=== PATIENT | female | born 2000 | race Caucasian/White ===

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

== ENCOUNTER 2019-01-01 19:23 | Emergency (ER) | payer OTHER, BC ==
--- NOTE | 2019-01-01 21:45 | XRAY Report ---
Reason: fall, R ankle pain Procedure Date: 01/01/2019 Accession Number: [id number] / [id number] Procedure: XR - Ankle 3 View RT CPT Code: FULL RESULT: EXAM: RIGHT ANKLE RADIOGRAPHY EXAM DATE: 01/01/2019 09:03 PM. CLINICAL HISTORY: Fall, R ankle pain. COMPARISON: None. TECHNIQUE: 3 views. FINDINGS: Bones: Normal. No fractures or bone lesions. Joints: Normal. No effusion. No subluxations. The ankle mortise is normally aligned. Soft Tissues: There is anterior and lateral ankle soft tissue swelling. IMPRESSION: Soft tissue swelling without fracture or subluxation. RADIA
--- NOTE | 2019-01-01 22:08 | ED Physician Documentation ---
PD HPI LOWER EXT INJURY - Stated complaint Stated Complaint: RT ANKLE INJ - Chief complaint Chief Complaint: Trauma Ext - History obtained from History obtained from: Patient - History of Present Illness PD HPI LOW EXT INJURY LOCATION: Right, Ankle Type of injury: Twist Where injury occurred: Home Timing - onset: How many hours ago (2) Timing - duration: Hours (2) Timing - details: Abrupt onset Pain level max: 7 Pain level now: 6 Improved by: Rest, Ice, Immobilization Worsened by: Moving, Palpating Associated symptoms: Swelling. No: Weakness, Numbness, Tingling Recently seen: Not recently seen - Additional information Additional information: tripped and fell down stairs at work tonight. Review of Systems Constitutional: denies: Fever, Chills Skin: denies: Rash Musculoskeletal: denies: Neck pain, Back pain Neurologic: denies: Headache PD PAST MEDICAL HISTORY - Past Medical History Past Medical History: Yes Endocrine/Autoimmune: HyPERthyroidism - Past Surgical History Past Surgical History: No - Present Medications Home Medications: Ambulatory Orders Medication Instructions Recorded Confirmed Levothyroxine [Synthroid] 1 tab PO DAILY 01/01/19 01/01/19 - Allergies Allergies/Adverse Reactions: Allergies Allergy/AdvReac Type Severity Reaction Status Date / Time No Known Drug Allergies Allergy Verified 01/01/19 19:36 - Social History Does the pt smoke?: No Smoking Status: Never smoker Does the pt drink ETOH?: No Does the pt have substance abuse?: No - Immunizations Immunizations are current?: No Immunizations: TDAP >10years/unknown PD ED PE NORMAL - Vitals Vital signs reviewed: Yes - General General: Alert and oriented X 3, No acute distress - HEENT HEENT: Moist mucous membranes - Derm Derm: Warm and dry - Extremities Extremities: Other (R ankle - TTP and swelling to the lateral malleolus. NVI. normal R foot and R knee exam. ) - Neuro Neuro: Alert and oriented X 3 - Psych Psych: Normal mood, Normal affect Results - Vitals Vitals: Vital Signs - 24 hr 01/01/19 19:29 Temperature 36.8 C Heart Rate 110 H Respiratory 20 Rate Blood Pressure 143/77 H O2 Saturation 98 Oxygen O2 Source Room air - Rads (name of study) R ankle Radiology: Prelim report reviewed, EMP read contemporaneously, See rad report (soft tissue swelling without acute fracture) PD MEDICAL DECISION MAKING - ED course Complexity details: reviewed results, re-evaluated patient, considered differential, d/w patient, d/w family ED course: 18-year-old female with a right ankle sprain. No acute findings on x-ray. Counseled regarding potential missed fractures. Placed in a gel splint and given crutches. Will make weightbearing as tolerated. Patient counseled regarding signs and symptoms for which I believe and urgent re-evaluation would be necessary. Patient with good understanding of and agreement to plan and is comfortable going home at this time This document was made in part using voice recognition software. While efforts are made to proofread this document, sound alike and grammatical errors may occur. L&I paperwork filled out Departure - Departure Disposition: 01 Home, Self Care Clinical Impression: Right ankle sprain Qualifiers: Encounter type: initial encounter Involved ligament of ankle: unspecified ligament Qualified Code(s): S93.401A - Sprain of unspecified ligament of right ankle, initial encounter Condition: Good Instructions: ED Sprain Ankle W X Ray Follow-Up: your,doctor in 1 week for re-evaluation [Other] Comments: Your x-ray does not show any acute abnormalities tonight. Return if you worsen. Follow-up with your doctor for further care within 1 week. You will need to be released back to work. You may bear weight as tolerated. You can use Motrin or Tylenol as needed for pain.
[2019-01-01 22:24] VITALS: BP 146/97
== END 2019-01-01 22:25 | disposition home or self-care (01) ==
LOC: ED 19:23
DX: S93.401A Sprain of unspecified ligament of right ankle, initial encounter (principal); X50.1XXA Overexertion from prolonged static or awkward postures, initial encounter; W10.9XXA Fall (on) (from) unspecified stairs and steps, initial encounter; Y93.01 Activity, walking, marching and hiking; Y99.0 Civilian activity done for income or pay
CPT/HCPCS: 99282; 99283

== ENCOUNTER 2019-07-16 15:48 | Emergency (ER) | payer BC, OTHER ==
[2019-07-16 15:53] VITALS: BP 131/93
--- NOTE | 2019-07-16 16:26 | ED Physician Documentation ---
PD HPI LOWER EXT INJURY - Stated complaint Stated Complaint: RIGHT FOOT INJ - Chief complaint Chief Complaint: Laceration - History obtained from History obtained from: Patient, Family (mom) - History of Present Illness PD HPI LOW EXT INJURY LOCATION: Right, Foot Type of injury: Laceration Where injury occurred: Home Timing - onset: Last night - Additional information Additional information: Patient was putting away dishes last night as she bumped the plate dropped on her foot and broke Review of Systems Respiratory: denies: Dyspnea, Cough Skin: reports: Laceration (s) Musculoskeletal: denies: Extremity pain, Joint pain, Extremity swelling PD PAST MEDICAL HISTORY - Past Medical History Endocrine/Autoimmune: HyPERthyroidism - Past Surgical History Past Surgical History: No - Present Medications Home Medications: Ambulatory Orders Medication Instructions Recorded Confirmed Levothyroxine [Synthroid] 1 tab PO DAILY 01/01/19 01/01/19 Metformin HCl 500 mg PO BID 07/16/19 07/16/19 - Allergies Allergies/Adverse Reactions: Allergies Allergy/AdvReac Type Severity Reaction Status Date / Time No Known Drug Allergies Allergy Verified 01/01/19 19:36 - Social History Does the pt smoke?: No Smoking Status: Never smoker Does the pt drink ETOH?: No Does the pt have substance abuse?: No - Immunizations Immunizations are current?: No Immunizations: TDAP current <10years PD ED PE NORMAL - Vitals Vital signs reviewed: Yes - General General: Alert and oriented X 3, No acute distress - Extremities Extremities: Other (1 cm laceration, superficial to dorsal foot) Results - Vitals Vitals: Vital Signs - 24 hr 07/16/19 15:50 Temperature 36.1 C L Heart Rate 99 Respiratory 18 Rate Blood Pressure 131/93 H O2 Saturation 99 Oxygen O2 Source Room air Procedures - Laceration (location) right foot Length in cm: 1 Wound type: Linear, Superficial Neurovascular status: Sensory intact, Motor intact, Vascular intact Tendon involvement: Tendon intact Wound Preparation: Irrigated copiously NS Skin layer closure: Steri strips Other: Dressing applied, Tetanus UTD Complexity: Simple PD MEDICAL DECISION MAKING - ED course ED course: Wound was cleaned with sterile normal saline and Steri-Stripped using tenture benzoin patient was given instructions on how to care for the Steri-Strips at home and reapply as needed Departure - Departure Disposition: 01 Home, Self Care Clinical Impression: Laceration Condition: Good Record reviewed to determine appropriate education?: Yes Instructions: ED Laceration Small Superf No Sutr Comments: Come back for any signs of infection which would include: Redness, swelling, drainage, increased pain, or fevers. You can wash it soap and water. Discharge Date/Time: 07/16/19 16:30
== END 2019-07-16 16:30 | disposition home or self-care (01) ==
LOC: ED 15:48
DX: S91.311A Laceration without foreign body, right foot, initial encounter (principal); W26.8XXA Contact with other sharp object(s), not elsewhere classified, initial encounter; Y93.E9 Activity, other interior property and clothing maintenance; Y92.009 Unspecified place in unspecified non-institutional (private) residence as the place of occurrence of the external cause
CPT/HCPCS: 12001; 99282; 99283

== ENCOUNTER 2019-12-18 23:04 | Emergency (ER) | payer BC, OTHER ==
--- NOTE | 2019-12-18 23:38 | ED Physician Documentation ---
History of Present Illness - Stated complaint Stated Complaint: R HAND SWELLING - Chief complaint Chief Complaint: Wound - History obtained from History obtained from: Patient - History of Present Illness Timing: How many weeks ago (1) Improved by: nothing Worsened by: no exacerbating factors - Additonal information Additional information: c/o rash on dorsum of right hand. Denies trauma/injury. She has had three round, red lesions on dorsum of right hand for 6-7 days but developed a smaller, new one this evening that is mildly painful. She has not had these symptoms before, has not sought medical attention for this until tonight. Review of Systems Constitutional: denies: Fever Skin: reports: Rash PD PAST MEDICAL HISTORY - Past Medical History Past Medical History: Yes Endocrine/Autoimmune: HyPERthyroidism - Past Surgical History Past Surgical History: No - Present Medications Home Medications: Ambulatory Orders Medication Instructions Recorded Confirmed Levothyroxine [Synthroid] 1 tab PO DAILY 01/01/19 01/01/19 Metformin HCl 500 mg PO BID 07/16/19 07/16/19 Doxycycline Hyclate 100 mg PO BID #19 capsule 12/19/19 - Allergies Allergies/Adverse Reactions: Allergies Allergy/AdvReac Type Severity Reaction Status Date / Time No Known Drug Allergies Allergy Verified 01/01/19 19:36 - Living Situation Living Arrangement: reports: At home - Social History Does the pt smoke?: No Smoking Status: Never smoker Does the pt drink ETOH?: No Does the pt have substance abuse?: No - Immunizations Immunizations are current?: No Immunizations: TDAP current <10years PD ED PE NORMAL - Vitals Vital signs reviewed: Yes - General General: Alert and oriented X 3, No acute distress, Well developed/nourished - Extremities Extremities: No tenderness to palpate, No edema PD ED PE EXPANDED - Extremities LULÚ UE/Hands Visual: 1 - rash 2 - rash 3 - rash (similar to 1, 2: erythematous macule, raised, with sharp margins. nontender, blanches, no fluctuance or discharge) 4 - rash (small, faint erythematous macule; flat, poorly marginated) Results - Vitals Vitals: Vital Signs - 24 hr 12/18/19 12/19/19 23:08 00:14 Temperature 36.7 C 36.4 C L Heart Rate 103 H 78 Respiratory 18 18 Rate Blood Pressure 146/92 H 119/69 O2 Saturation 98 99 Oxygen O2 Source Room air PD MEDICAL DECISION MAKING - ED course Complexity details: considered differential, d/w patient ED course: lesions are limited to dorsum of right hand, unclear etiology, possibly infected insect bites and will treat with doxycycline to see if this clears the lesions. Departure - Departure Disposition: 01 Home, Self Care Clinical Impression: Infected bite wound of hand Condition: Good Instructions: ED Infec Skin Cellulitis, ED Sting Bite Insect Infec Prescriptions: Doxycycline Hyclate 100 mg PO BID #19 capsule Discharge Date/Time: 12/19/19 00:22
[2019-12-19] MEDS ORDERED: DOXYCYCLINE 100 MG TABLET PO STA (00:02)
[2019-12-19 00:15] VITALS: BP 119/69
== END 2019-12-19 00:22 | disposition home or self-care (01) ==
LOC: ED 23:04
DX: S61.451A Open bite of right hand, initial encounter (principal); L08.9 Local infection of the skin and subcutaneous tissue, unspecified; X58.XXXA Exposure to other specified factors, initial encounter
CPT/HCPCS: 99282; 99283; A9270

== ENCOUNTER 2022-11-15 08:00 | Outpatient (CLI) | payer BC ==
[2022-11-15 16:01] LABS: BILIRUBIN,URINE NEGATIVE (NEGATIVE); GLUCOSE, URINE (UA) NEGATIVE (NEGATIVE); KETONES,URINE (UA) NEGATIVE (NEGATIVE); LEUKOCYTE ESTERASE, URINE NEGATIVE (NEGATIVE); NITRITE,URINE POSITIVE (NEGATIVE); OCCULT BLOOD,URINE NEGATIVE (NEGATIVE); PH,URINE 5.5 PH (5.0-7.5); PROTEIN,URINE NEGATIVE (NEGATIVE); UROBILINOGEN,URINE 0.2 (NORMAL) E.U./dL (NORMAL)
[2022-11-15 16:08] LABS: CLARITY,URINE CLOUDY (CLEAR)
[2022-11-15 16:51] LABS: BACTERIA,URINE None Seen /HPF (None Seen); RBC,URINE 0-5 /HPF (0-5); SQUAMOUS EPITHELIAL CELL,UR NONE SEEN (<= Few); WBC,URINE 0-3 /HPF (0-5)
[2022-11-15 16:52] LABS: AMORPHOUS SEDIMENT,UR Marked /LPF
[2022-11-15 21:12] LABS: CHLAMYDIA TRACHOMATIS DNA NEGATIVE (NEGATIVE); NEISSERIA GONORRHOEAE DNA NEGATIVE (NEGATIVE); TRICHOMONAS VAGINALIS DNA NEGATIVE (NEGATIVE)
== END 2022-11-15 23:59 | disposition home or self-care (01) ==
LOC: LAB.WC 08:00
PROVIDERS: ATTEND Nurse Practitioner
DX: O09.891 Supervision of other high risk pregnancies, first trimester (principal)
CPT/HCPCS: 81001; 87086; 87491; 87591; 87661

== ENCOUNTER 2022-11-15 12:10 | Outpatient (CLI) | payer BC, OTHER ==
[2022-11-15 12:34] LABS: BASOPHILS # (AUTO) 0.1 10^3/uL (0.0-0.1); BASOPHILS % (AUTO) 0.7 %; EOSINOPHILS # (AUTO) 0.4 10^3/uL (0.0-0.7); EOSINOPHILS % (AUTO) 3.9 %; HCT - HEMATOCRIT 36.4 % (37.0-47.0); HGB - HEMOGLOBIN 11.8 g/dL (12.0-16.0); LYMPHOCYTES # (AUTO) 2.7 10^3/uL (1.5-3.5); LYMPHOCYTES % (AUTO) 25.2 %; MEAN CORPUSCULAR HEMOGLOBIN 27.4 pg (27.0-31.0); MEAN CORPUSCULAR HGB CONC 32.4 g/dL (32.0-36.0); MEAN CORPUSCULAR VOLUME 84.7 fL (81.0-99.0); MEAN PLATELET VOLUME 9.5 fL (7.9-10.8); MONOCYTES # (AUTO) 0.6 10^3/uL (0.0-1.0); MONOCYTES % (AUTO) 5.2 %; NEUTROPHILS % (AUTO) 64.6 %; PLT - PLATELET COUNT 338 10^3/uL (130-450); RED CELL DISTRIBUTION WIDTH 14.5 % (12.0-15.0); WHITE BLOOD COUNT 10.9 x10^3/uL (4.8-10.8)
[2022-11-16 03:09] LABS: HCV AB Non Reactive (Non Reactive); HIV SCREEN 4TH GENERATION Non Reactive (Non Reactive)
[2022-11-16 05:13] LABS: HBsAG SCREEN Negative (Negative)
[2022-11-16 07:09] LABS: RPR Non Reactive (Non Reactive)
[2022-11-16 12:09] LABS: VARICELLA-ZOSTER AB IGG 1017 index (Immune >165)
== END 2022-11-15 12:11 | disposition home or self-care (01) ==
LOC: LAB 12:10
PROVIDERS: ATTEND Nurse Practitioner
DX: O09.891 Supervision of other high risk pregnancies, first trimester (principal)
CPT/HCPCS: 36415; 81001; 84702; 85025; 86592; 86762; 86787; 86803; 86850; 86900; 86901; 87086; 87340; 87389; 87491; 87591; 87661

== ENCOUNTER 2022-12-29 08:00 | Outpatient (CLI) | payer BC ==
[2022-12-29 15:58] LABS: BILIRUBIN,URINE NEGATIVE (NEGATIVE); GLUCOSE, URINE (UA) NEGATIVE (NEGATIVE); KETONES,URINE (UA) NEGATIVE (NEGATIVE); LEUKOCYTE ESTERASE, URINE NEGATIVE (NEGATIVE); NITRITE,URINE NEGATIVE (NEGATIVE); OCCULT BLOOD,URINE NEGATIVE (NEGATIVE); PROTEIN,URINE NEGATIVE (NEGATIVE); UROBILINOGEN,URINE 0.2 (NORMAL) E.U./dL (NORMAL)
[2022-12-29 16:01] LABS: CLARITY,URINE CLEAR (CLEAR)
[2022-12-29 16:10] LABS: BACTERIA,URINE None Seen /HPF (None Seen); RBC,URINE 0-5 /HPF (0-5); SQUAMOUS EPITHELIAL CELL,UR RARE Squamous (<= Few); WBC,URINE 0-3 /HPF (0-5)
== END 2022-12-29 23:59 | disposition home or self-care (01) ==
LOC: LAB.WC 08:00
PROVIDERS: ATTEND Obstetrics & Gynecology
DX: O09.891 Supervision of other high risk pregnancies, first trimester (principal); Z36.89 Encounter for other specified antenatal screening
CPT/HCPCS: 81001; 87086

== ENCOUNTER 2023-01-11 15:32 | Outpatient (CLI) | payer BC | END 2023-01-11 15:33 | disposition home or self-care (01) | LOC: LAB 15:32 | PROVIDERS: ATTEND Obstetrics & Gynecology | DX: Z36.89 Encounter for other specified antenatal screening (principal) ==

== ENCOUNTER 2023-02-24 16:17 | Outpatient (CLI) | payer BC ==
[2023-02-24 16:31] LABS: BASOPHILS % (AUTO) 0.4 %; EOSINOPHILS # (AUTO) 0.1 10^3/uL (0.0-0.7); EOSINOPHILS % (AUTO) 1.3 %; HCT - HEMATOCRIT 36.8 % (37.0-47.0); HGB - HEMOGLOBIN 11.9 g/dL (12.0-16.0); LYMPHOCYTES # (AUTO) 2.9 10^3/uL (1.5-3.5); LYMPHOCYTES % (AUTO) 27.7 %; MEAN CORPUSCULAR HEMOGLOBIN 27.6 pg (27.0-31.0); MEAN CORPUSCULAR HGB CONC 32.3 g/dL (32.0-36.0); MEAN CORPUSCULAR VOLUME 85.4 fL (81.0-99.0); MEAN PLATELET VOLUME 10.3 fL (7.9-10.8); MONOCYTES # (AUTO) 0.7 10^3/uL (0.0-1.0); MONOCYTES % (AUTO) 6.4 %; NEUTROPHILS # (AUTO) 6.8 10^3/uL (1.5-6.6); PLT - PLATELET COUNT 330 10^3/uL (130-450); RED BLOOD COUNT 4.31 10^6/uL (4.20-5.40); RED CELL DISTRIBUTION WIDTH 13.8 % (12.0-15.0); WHITE BLOOD COUNT 10.6 x10^3/uL (4.8-10.8)
[2023-02-24 17:18] LABS: THYROID STIMULATING HORMONE 3.42 uIU/mL (0.34-5.60)
[2023-02-26 19:07] LABS: AFP MOM 1.14 (.); AFP VALUE 25.1 ng/mL (.); GEST. AGE ON COLLECTION DATE 15.4 weeks (.); GESTAT. AGE METHOD Ultrasound (.); INSULIN DEP DIABETES No (.); MATERNAL AGE AT EDD 23.7 yr (.); MULTIPLE GESTATION No (.); OPEN SPINA BIFIDA RISK 1 IN 7850 (.); RACE Caucasian (.); RESULTS Report (.); TEST RESULTS *Screen Negative* (.); WEIGHT 273 lbs (.)
== END 2023-02-24 16:18 | disposition home or self-care (01) ==
LOC: LAB 16:17
PROVIDERS: ATTEND Obstetrics & Gynecology
DX: O09.92 Supervision of high risk pregnancy, unspecified, second trimester (principal); O99.891 Other specified diseases and conditions complicating pregnancy; R42 Dizziness and giddiness
CPT/HCPCS: 36415; 82105; 82728; 84443; 85025

== ENCOUNTER 2023-03-01 11:26 | Outpatient (CLI) | payer BC | END 2023-03-01 11:27 | disposition home or self-care (01) | LOC: LAB 11:26 | PROVIDERS: ATTEND Nurse Practitioner | DX: O99.213 Obesity complicating pregnancy, third trimester (principal) | CPT/HCPCS: 36415; 82950 ==

== ENCOUNTER 2023-03-07 18:48 | Outpatient (CLI) | payer BC ==
--- NOTE | 2023-03-08 15:56 | Ultrasound Report ---
PROCEDURE: OB Detailed Eval INDICATIONS: SUPERVISION OF OUTSIDE/PRIOR DATING DATA: Last menstrual period (LMP): Unknown. LMP-based estimated date of delivery (LAKEISHA): Unknown. First dating scan (date and location): 11/25/2022. Estimated date of delivery (LAKEISHA) from first dating scan: 07/17/2023. The below data below was generated using the ultrasound LAKEISHA of 07/17/2023 TECHNIQUE: Real-time scanning was performed of the fetus, with image documentation and biometric measurements. COMPARISON: OB ultrasound 03/06/2023 FINDINGS: General: A single living intrauterine gestation is present. Presentation: Variable Placenta: Placental position is posterior, without previa. Amniotic fluid index: 13.7 cm, within normal limits for gestational age. heart rate: 152 beats per minute. Maternal cervical canal: 4.5 cm long; normal length is 2.5 cm or more. biometrics: Biparietal diameter: 4.7 cm 20 weeks 1 day, 15th percentile Head circumference: 18.3 cm 20 weeks 5 days, 22nd percentile Abdominal circumference: 16.7 cm 20 weeks 5 days, 62nd percentile Femur length: 3.3 cm 20 weeks 2 days 15th percentile Estimated gestational age from initial scan: 21 weeks 1 day Composite gestational age from present scan: 20 weeks 4 days Estimated weight and percentile: 390 g, 37th percentile Measurement variability in biometric dating: +/- 10 days from 12-20 weeks gestation, +/- 2 weeks from 20-30 weeks gestation, +/- 3 weeks at 30 weeks gestation or later. Anatomic survey: Neuro: Ventricles are normal at less than 10 mm. Cisterna magna is normal at 3-11 mm. Cerebellum i s normal in size and morphology. Nuchal skin fold: Not well seen. However, it is at the upper limits of normal for gestational age samantha surement. Face: Nose and lips, facial profile are normal. Spine: Not well seen. Heart: 4-chambered heart is present, with normal ventricular outflow tracts. Diaphragm: Diaphragm is intact. Stomach: Left-sided stomach is present. Kidneys: No hydronephrosis. Normal is less than 5 mm in 2nd trimester, less than 7 mm in 3rd trimester. Cord: 3 vessel cord has orthotopic insertion. Bladder: Normal in size. Extremities: Upper extremities are not well visualized. IMPRESSION: Single live intrauterine with ultrasound gestational age today of 20 weeks 4 days. Spine and upper extremities are not well visualized. Reviewed by: Soo Mcdonnell MD on 03/08/2023 3:55 PM PDT Approved by: Soo Mcdonnell MD on 03/08/2023 3:55 PM PDT Station ID: [id number]
== END 2023-03-07 18:49 | disposition home or self-care (01) ==
LOC: DI 18:48
PROVIDERS: ATTEND Obstetrics & Gynecology
DX: O09.92 Supervision of high risk pregnancy, unspecified, second trimester (principal); Z3A.20 20 weeks gestation of pregnancy

== ENCOUNTER 2023-03-16 15:25 | Outpatient (CLI) | payer BC ==
--- NOTE | 2023-03-17 16:12 | Ultrasound Report ---
PROCEDURE: OB F/U or Repeat INDICATIONS: SUPERVISION OF OUTSIDE/PRIOR DATING DATA: Last menstrual period (LMP): Unknown. LMP-based estimated date of delivery (LAKEISHA): Unknown. First dating scan (date and location): 11/25/2022. Estimated date of delivery (LAKEISHA) from first dating scan: 07/17/2023. TECHNIQUE: Real-time scanning was performed of the fetus, with image documentation and biometric measurements. Endovaginal scanning: Not performed. COMPARISON: OB ultrasound, 03/07/2023. FINDINGS: General: A single living intrauterine gestation is present. Presentation: Cephalic Placenta: Placental position is posterior, without previa. Amniotic fluid index: 11.7 cm, with the largest pocket 3.2 cm. heart rate: 144 beats per minute. Maternal cervical canal: 4.5 cm long; normal length is 2.5 cm or more. biometrics: Not performed. Estimated gestational age from initial scan: 22 weeks 3 days. Measurement variability in biometric dating: +/- 10 days from 12-20 weeks gestation, +/- 2 weeks from 20-30 weeks gestation, +/- 3 weeks at 30 weeks gestation or more. Other: spine and upper extremities are visualized and appear normal. . IMPRESSION: 1. A single living IUP redemonstrated. 2. Normal HIMA. 3. spine and upper extremity appear normal. Reviewed by: Cathryn Lopez MD on 03/17/2023 4:11 PM PST Approved by: Cathryn Lopez MD on 03/17/2023 4:11 PM PST Station ID: [id number]
== END 2023-03-16 15:26 | disposition home or self-care (01) ==
LOC: DI 15:25
PROVIDERS: ATTEND Obstetrics & Gynecology
DX: O09.92 Supervision of high risk pregnancy, unspecified, second trimester (principal); Z3A.22 22 weeks gestation of pregnancy

== ENCOUNTER 2023-05-07 11:02 | Outpatient (CLI) | payer BC ==
[2023-05-07 12:19] LABS: HCT - HEMATOCRIT 37.9 % (37.0-47.0); HGB - HEMOGLOBIN 12.1 g/dL (12.0-16.0); MEAN CORPUSCULAR HEMOGLOBIN 27.1 pg (27.0-31.0); MEAN CORPUSCULAR HGB CONC 31.9 g/dL (32.0-36.0); MEAN CORPUSCULAR VOLUME 84.8 fL (81.0-99.0); MEAN PLATELET VOLUME 10.1 fL (7.9-10.8); RED BLOOD COUNT 4.47 10^6/uL (4.20-5.40); RED CELL DISTRIBUTION WIDTH 13.5 % (12.0-15.0); WHITE BLOOD COUNT 12.6 x10^3/uL (4.8-10.8)
[2023-05-07 12:51] LABS: THYROID STIMULATING HORMONE 2.69 uIU/mL (0.34-5.60)
== END 2023-05-07 11:03 | disposition home or self-care (01) ==
LOC: LAB 11:02
PROVIDERS: ATTEND Nurse Practitioner
DX: O09.892 Supervision of other high risk pregnancies, second trimester (principal); Z3A.27 27 weeks gestation of pregnancy
CPT/HCPCS: 36415; 82950; 84443; 85027; 86850

== ENCOUNTER 2023-06-01 16:22 | Outpatient (CLI) | payer BC ==
--- NOTE | 2023-06-02 11:19 | Ultrasound Report ---
PROCEDURE: OB Follow up INDICATIONS: SUPERVISION OF HIGH RISK OUTSIDE/PRIOR DATING DATA: Last menstrual period (LMP): Unknown. First dating scan (date and location): 11/25/2022. Estimated date of delivery (LAKEISHA) from first dating scan: 07/17/2023. The below data below was generated using the ultrasound LAKEISHA of 07/17/2023 TECHNIQUE: Real-time scanning was performed of the fetus, with image documentation and biometric measurements. Endovaginal scanning: Not performed. COMPARISON: OB ultrasound on March 16, 2023. FINDINGS: General: A single living intrauterine gestation is present. Presentation: Vertex Placenta: Placental position is posterior, without previa. Amniotic fluid index: 11.5 cm, within normal limits for gestational age. heart rate: 140 beats per minute. Maternal cervical canal: Not imaged biometrics: Biparietal diameter: 8.64 cm, 32 weeks and 2 days Head circumference: 30.5 cm, 34 weeks and 0 days Abdominal circumference: 31.2 cm, 35 weeks and 1 day Femur length: 6.4 cm, 33 weeks and 0 days Estimated gestational age from initial scan: 33 weeks and 3 days Composite gestational age from present scan: 33 weeks and 4 days Estimated weight and percentile: 2361. 3 g, 64.6% Measurement variability in biometric dating: +/- 10 days from 12-20 weeks gestation, +/- 2 weeks from 20-30 weeks gestation, +/- 3 weeks at 30 weeks gestation or more. Other: Bilateral adnexa are unremarkable. Single wrapped nuchal cord. IMPRESSION: 1.Single living intrauterine gestation in vertex presentation. 2.HIMA is 11.5 cm. 3.Estimated weight is 2361.3 g, 64.6%. Reviewed by: Jose Pan MD on 06/02/2023 11:17 AM PST Approved by: Jose Pan MD on 06/02/2023 11:17 AM PST Station ID: [id number]
== END 2023-06-01 16:23 | disposition home or self-care (01) ==
LOC: DI 16:22
PROVIDERS: ATTEND Nurse Practitioner
DX: O09.93 Supervision of high risk pregnancy, unspecified, third trimester (principal); Z3A.33 33 weeks gestation of pregnancy

== ENCOUNTER 2023-06-22 15:56 | Outpatient (CLI) | payer BC ==
--- NOTE | 2023-06-22 16:05 | PROCEDURE REPORT ---
- HPI Current EDU 07/17/23 Gestation 36 Weeks and 3 Days 1 Para 0 Vital Signs Temperature 99.0 F 06/22/23 16:00 Heart Rate 106 H 06/22/23 16:00 Respiratory Rate 18 06/22/23 16:00 Blood Pressure 118/67 06/22/23 16:00 - NST Procedure NST Procedure Start Date 06/22/23 Start Time 16:10 Stop Time 16:36 Vibroacoustic Stimulation Used No Patient States Movement No - Results and Plan Plan: Patient is a 22-year-old G1, P0 at 36 weeks 3 days gestation here for NST. NST Performed 06/23/2023 NST Read 06/23/2023 FHT: 150 bpm baseline, moderate variability, accelerations present, no decelerations. Reactive NST [place]: Quiescent Diagnosis 36 weeks gestation Obesity Continue with scheduled NST.
[2023-06-22 16:22] VITALS: BP 118/67
== END 2023-06-22 16:45 | disposition home or self-care (01) ==
LOC: WFO 15:56 → FBP 15:58 → WFO 16:45
PROVIDERS: ATTEND Obstetrics & Gynecology
DX: O99.213 Obesity complicating pregnancy, third trimester (principal); Z3A.36 36 weeks gestation of pregnancy
CPT/HCPCS: 59025

== ENCOUNTER 2023-06-23 08:00 | Outpatient (CLI) | payer BC | END 2023-06-23 23:59 | disposition home or self-care (01) | LOC: LAB.WC 08:00 | PROVIDERS: ATTEND Obstetrics & Gynecology | DX: Z36.85 Encounter for antenatal screening for Streptococcus B (principal) | CPT/HCPCS: 87797 ==

== ENCOUNTER 2023-06-29 16:03 | Outpatient (CLI) | payer BC ==
[2023-06-29 16:18] VITALS: BP 126/74
--- NOTE | 2023-07-13 20:23 | PROCEDURE REPORT ---
- HPI Vital Signs Temperature 97.7 F 06/29/23 16:13 Heart Rate 95 06/29/23 16:13 Respiratory Rate 17 06/29/23 16:13 Blood Pressure 126/74 06/29/23 16:13 Temperature 97.7 F 06/29/23 16:13 Heart Rate 95 06/29/23 16:13 Respiratory Rate 17 06/29/23 16:13 Blood Pressure 126/74 06/29/23 16:13 O2 Saturation If not protocol: Oxygen Flow, liters/minute - NST Procedure NST Procedure Start Time 16:10 Stop Time 16:36 NST for obesity reviewed. normal baseline. moderate variability. acels and no decels. reactive NST. - Results and Plan Plan: care as scheduled.
== END 2023-06-29 16:50 | disposition home or self-care (01) ==
LOC: WFO 16:03 → FBP 16:05 → WFO 16:50
PROVIDERS: ATTEND Obstetrics & Gynecology
DX: O99.213 Obesity complicating pregnancy, third trimester (principal); Z3A.00 Weeks of gestation of pregnancy not specified
CPT/HCPCS: 59025; 99213

== ENCOUNTER 2023-06-29 16:51 | Outpatient (CLI) | payer BC ==
--- NOTE | 2023-07-02 09:02 | Ultrasound Report ---
PROCEDURE: OB Follow up INDICATIONS: SUPERVISION OF OUTSIDE/PRIOR DATING DATA: Last menstrual period (LMP): Unknown. First dating scan (date and location): 11/25/2022. Estimated date of delivery (LAKEISHA) from first dating scan: 07/17/2023. The below data below was generated using the ultrasound LAKEISHA of 07/17/2023 TECHNIQUE: Real-time scanning was performed of the fetus, with image documentation and biometric measurements. Endovaginal scanning: Not performed. COMPARISON: OB ultrasound, 06/01/2023. FINDINGS: General: A single living intrauterine gestation is present. Presentation: Vertex Placenta: Placental position is posterior, without previa. Amniotic fluid index: 12.8 cm, with largest pocket 5.4 cm. heart rate: 130 beats per minute. Maternal cervical canal: Not visualized. biometrics: Biparietal diameter: 8.74 cm; 35 weeks 2 days; 13.6% Head circumference: 32.81 cm; 37 weeks 2 days; 23% Abdominal circumference: 33.26 cm; 37 weeks 1 day; 58.3% Femur length: 7.22 cm; 37 weeks 0 days; 38.3% Estimated gestational age from initial scan: 37 weeks 3 days. Composite gestational age from present scan: 36 weeks 5 days Estimated weight and percentile: 3065.4 g; 44.7% Measurement variability in biometric dating: +/- 10 days from 12-20 weeks gestation, +/- 2 weeks from 20-30 weeks gestation, +/- 3 weeks at 30 weeks gestation or more. Other: Note is made of nuchal cord. IMPRESSION: 1. A single living IUP with appropriate interval growth. 2. The estimated weight is 3065.4 g at 44.7% for gestational age. 3. Normal HIMA. 4. Nuchal cord noted. Reviewed by: Cathryn Lopez MD on 07/02/2023 9:01 AM PST Approved by: Cathryn Lopez MD on 07/02/2023 9:01 AM PST Station ID: [id number]
== END 2023-06-29 16:52 | disposition home or self-care (01) ==
LOC: DI 16:51
PROVIDERS: ATTEND Nurse Practitioner
DX: O09.93 Supervision of high risk pregnancy, unspecified, third trimester (principal); Z3A.36 36 weeks gestation of pregnancy

== ENCOUNTER 2023-07-06 16:12 | Outpatient (CLI) | payer BC ==
[2023-07-06 16:47] VITALS: BP 133/55; O2SAT 96
--- NOTE | 2023-07-06 20:35 | PROCEDURE REPORT ---
- HPI Diagnosis/Indication for NST: Other (obesity) Vital Signs Temperature 97.5 F L 07/06/23 16:30 Heart Rate 96 07/06/23 16:30 Respiratory Rate 17 07/06/23 16:30 Blood Pressure 133/55 H 07/06/23 16:30 O2 Saturation 96 07/06/23 16:30 Temperature 97.5 F L 07/06/23 17:10 Heart Rate 96 07/06/23 16:30 Respiratory Rate 17 07/06/23 16:30 Blood Pressure 133/55 H 07/06/23 16:30 O2 Saturation 96 07/06/23 16:30 If not protocol: Oxygen Flow, liters/minute - NST Procedure NST Procedure Start Date 07/06/23 Start Time 16:32 Stop Time 17:10 Vibroacoustic Stimulation Used No 38 weeks NST for obesity. baseline 135 + acels and no decels. reactive nst care as scheduled.
== END 2023-07-06 17:10 | disposition home or self-care (01) ==
LOC: WFO 16:12 → FBP 16:14 → WFO 17:10
PROVIDERS: ATTEND Obstetrics & Gynecology
DX: O99.213 Obesity complicating pregnancy, third trimester (principal); Z3A.38 38 weeks gestation of pregnancy
CPT/HCPCS: 59025

== ENCOUNTER 2023-07-06 17:14 | Outpatient (CLI) | payer BC ==
--- NOTE | 2023-07-07 12:46 | Ultrasound Report ---
PROCEDURE: OB Limited INDICATIONS: OBESITY OUTSIDE/PRIOR DATING DATA: Last menstrual period (LMP): Unknown. LMP-based estimated date of delivery (LAKEISHA): Unknown. First dating scan (date and location): 11/25/2022. Estimated date of delivery (LAKEISHA) from first dating scan: 07/17/2023. The below data below was generated using the working LAKEISHA of 07/17/2023 TECHNIQUE: Real-time scanning was performed of the fetus, with image documentation. Endovaginal scanning: Not performed COMPARISON: 11/25/2022, 03/06/2023, 03/16/2023, 06/01/2023, 06/29/2023 FINDINGS: A single living intrauterine gestation is present. Presentation: Vertex Placenta: Placental position is anterior, without previa. Amniotic fluid index: 13.4 cm, normal for gestational age. heart rate: 150 beats per minutes. Maternal cervical canal : not evaluated. Estimated gestational age from initial scan: 38 weeks, 3 days. IMPRESSION: Live intrauterine gestation with fetus in vertex presentation. heart rate is 150 b pm. Normal amount of amniotic fluid. HIMA equals 13.4 cm. Reviewed by: Jr Aragon MD on 07/07/2023 12:45 PM PST Approved by: Jr Aragon MD on 07/07/2023 12:45 PM PST Station ID: [id number]
== END 2023-07-06 17:15 | disposition home or self-care (01) ==
LOC: DI 17:14
PROVIDERS: ATTEND Obstetrics & Gynecology
DX: O99.213 Obesity complicating pregnancy, third trimester (principal); Z3A.38 38 weeks gestation of pregnancy

== ENCOUNTER 2023-07-13 16:52 | Outpatient (CLI) | payer BC ==
[2023-07-13 17:18] VITALS: BP 130/76
--- NOTE | 2023-07-13 20:24 | PROCEDURE REPORT ---
- HPI Diagnosis/Indication for NST: Other (obesity) Current EDU 07/17/23 Gestation 39 Weeks and 3 Days 1 Para 0 Vital Signs Temperature 98.7 F 07/13/23 17:10 Heart Rate 100 07/13/23 17:10 Respiratory Rate 18 07/13/23 17:10 Blood Pressure 130/76 07/13/23 17:10 Temperature 98.7 F 07/13/23 17:10 Heart Rate 100 07/13/23 17:10 Respiratory Rate 18 07/13/23 17:10 Blood Pressure 130/76 07/13/23 17:10 O2 Saturation If not protocol: Oxygen Flow, liters/minute - NST Procedure NST Procedure Start Date 07/13/23 Start Time 16:58 Stop Time 17:35 Vibroacoustic Stimulation Used No Patient States Movement Yes NST reviewed. NOrmal baseline, moderate variability. acels and no decels. reactive NST. care as scheduled.
== END 2023-07-13 17:35 | disposition home or self-care (01) ==
LOC: WFO 16:52 → FBP 16:55 → WFO 17:35
PROVIDERS: ATTEND Obstetrics & Gynecology
DX: O99.213 Obesity complicating pregnancy, third trimester (principal); Z3A.39 39 weeks gestation of pregnancy
CPT/HCPCS: 59025; 99211

== ENCOUNTER → 2023-07-13 23:59 | Outpatient (CLI) | payer BC ==
--- NOTE | 2023-07-14 09:46 | Ultrasound Report ---
PROCEDURE: OB Limited INDICATIONS: OBESITY OUTSIDE/PRIOR DATING DATA: Last menstrual period (LMP): Unknown. First dating scan (date and location): 11/25/2022. Estimated date of delivery (LAKEISHA) from first dating scan: 07/17/2023. TECHNIQUE: Real-time scanning was performed of the fetus, with image documentation. COMPARISON: None. FINDINGS: A single living intrauterine gestation is present. Presentation: Vertex Placenta: Placental position is posterior, without previa. Amniotic fluid index: 17.8 cm, within normal limits for gestational age. heart rate: 155 beats per minutes. Estimated gestational age from initial scan: 39 weeks and 3 days.. IMPRESSION: HIMA is 17.8. Vertex presentation. Reviewed by: Brant Parra MD on 07/14/2023 9:45 AM [facility] Approved by: Brant Parra MD on 07/14/2023 9:45 AM [facility] Station ID: [id number]
== END | disposition home or self-care (01) ==
LOC: DI 07-12 16:45
PROVIDERS: ATTEND Obstetrics & Gynecology
DX: O99.213 Obesity complicating pregnancy, third trimester (principal); Z3A.39 39 weeks gestation of pregnancy

== ENCOUNTER 2023-07-20 07:55 | Inpatient (IN) | payer BC ==
[2023-07-20] MEDS ORDERED: miSOPROStoL 200 MCG TABLET BC PRN (09:09)
[2023-07-20] MEDS ORDERED: CARBOPROST TROMETHAMINE 250 MCG/ML VIAL IM PRN (09:09)
[2023-07-20] MEDS ORDERED: ONDANSETRON ODT 4 MG TABLET TL PRN (09:09)
[2023-07-20] MEDS ORDERED: SODIUM CHLORIDE FLUSH 0.9% 10 ML SYRINGE IVP PRN (09:09)
[2023-07-20] MEDS ORDERED: OXYTOCIN 10 UNIT/ML VIAL IM PRN (09:09)
[2023-07-20] MEDS ORDERED: lidocaine 1% 20 ML MDV ID PRN (09:09)
[2023-07-20] MEDS ORDERED: TRANEXAMIC ACID IN NACL 1,000 MG/100 ML BAG IV PRN (09:09)
[2023-07-20] MEDS ORDERED: OXYTOCIN/SODIUM CHLORIDE 500 ML IV PRN (09:09)
[2023-07-20] MEDS ORDERED: METHYLERGONOVINE 0.2 MG/ML VIAL IM PRN (09:09)
[2023-07-20] MEDS: miSOPROStoL 100 MCG TABLET VG SCH (09:40)
[2023-07-20 09:41] LABS: BASOPHILS % (AUTO) 0.4 %; EOSINOPHILS # (AUTO) 0.1 10^3/uL (0.0-0.7); EOSINOPHILS % (AUTO) 1.2 %; HCT - HEMATOCRIT 40.3 % (37.0-47.0); HGB - HEMOGLOBIN 12.7 g/dL (12.0-16.0); LYMPHOCYTES # (AUTO) 2.6 10^3/uL (1.5-3.5); LYMPHOCYTES % (AUTO) 24.6 %; MEAN CORPUSCULAR HEMOGLOBIN 26.6 pg (27.0-31.0); MEAN CORPUSCULAR HGB CONC 31.5 g/dL (32.0-36.0); MEAN CORPUSCULAR VOLUME 84.5 fL (81.0-99.0); MONOCYTES # (AUTO) 0.6 10^3/uL (0.0-1.0); MONOCYTES % (AUTO) 5.9 %; NEUTROPHILS # (AUTO) 7.2 10^3/uL (1.5-6.6); NEUTROPHILS % (AUTO) 67.6 %; PLT - PLATELET COUNT 313 10^3/uL (130-450); RED BLOOD COUNT 4.77 10^6/uL (4.20-5.40); RED CELL DISTRIBUTION WIDTH 14.4 % (12.0-15.0); WHITE BLOOD COUNT 10.6 x10^3/uL (4.8-10.8)
--- NOTE | 2023-07-20 21:38 | HISTORY & PHYSICAL EXAMINATION ---
Admit History - Visit Reason Visit Reason: Other (induction of labor at term for obesity) - Care: positive: IW Smoking Status: Never smoker - Mother's Labs GBS: positive: Group B Step Negative - Other Maternal History Other Maternal History: last growth ultrasound 07/02/23 47%ile. HC and AC almost identical. fluid normal. Allergies Reviewed: Done No Known Allergies Medications: Meds Reviewed: Done * Vitamin * Electric Breast Pump Use 1 device as directed as directed USE TO EXPRESS MILK ACCORDING TO BABY'S NEEDS Z39.1 LAKEISHA 07/17/2023 aspirin 81 mg tablet,chewable (aspirin) Take 1 tablet by mouth once a day CHEW AND SWALLOW 1 TABLET BY MOUTH DAILY Problems: Obesity complicating , third trimester (ICD-649.13) (ZKE58-M01.213) Supervision of other high risk , third trimester (ICD-V23.89) (ICD10- O09.893) Past Medical History: Obesity PCOS Vital Signs: Patient Profile: 22 Years Old Female Height: 64 inches Weight: 279 pounds BMI: 48.06 BP sittin / 76 Cuff size: large Vitals Entered By: Brenda MENA (July 13, 2023 3:42 PM) Flowsheet View for Follow-up Visit Estimated weeks of gestation: 39 3/7 Weight: 279 Blood pressure: 122 / 76 Fundal height: 40 FHR: 150 Vaginal bleeding: no Vaginal discharge: no activity: yes Labor symptoms: no position: vertex Cx Dilation: 0 Cx Effacement: 0% Cx Station: -3 Taking vits? Y Smoking: n/a Next visit: 1 wk Comment: Attempted membrane sweep, but cervix closed, although soft. Discussed IOL 07/19. No other complaints. -JAW LMP: unknown LAKEISHA by LMP: N/A US: 11/25/2022 6+4 weeks Final LAKEISHA: 07/17/2023 G1 LDASA initiated 02/24/23 @ 19+4 TSH & testing [place] PCOS endo had her on levothyroxoid to try to get her period back she stopped it when she got Obesity discussed weight gain watch BMI for delivery. Discussed BMI limit. surveillance 36 weeks. EFW 06/29: 3065 gm 45% Rub Eq MMR post- Pre- Weight: 286 BMI: 47.89 Blood type: O+ Antibody Screen: negative CBC: PLT 338 HCT 36.4 HGB 11.8 RUB: equivocal VZV: immune HBsAg: negative HepC: N-R RPR/AB-EIA: N-R HIV: N-R Flu: given 01/26/23 Covid: 1 dose Marcelo Robertson; 1 booster Moderna PAP: 2020 normal GC/CT: negative HSV: denies self/partner Genetic testing: NIPT Negative AFP- Negative FAS: Placenta:posterior w/o previa Cord:3VC HIMA:normal EFW: 390g 37th%ile -Spine and upper extremities not well seen f/u ordered F/U US- Anatomy cleared and normal 50gm OGCT: EARLY 03/01 @ 19 weeks - 110 05/07/23- 104 TDAP: given 04/19/2023 Breast Pump: 04/19/2023 2nd Antibody screen: RSV: 06/01 3rd trimester PLT: 299 HCT 12.1; HGB 37.9 GBS: negative Delivery plan: IOL 07/19 Contraception: Considering POP. Previous nexplanon, paragard, OCPs. Gender ID Identifies as Female LMP: 08/07/2022 EDC: 07/17/2023 EDC by Ultrasound: 07/17/2023 Height: 64 (07/06/2023 3:40:43 PM) Weight: 279 Weight (pre-): 286 (12/29/2022 12:54:33 PM) Chlamydia: NEGATIVE (11/15/2022 11:55:00 AM) Group B: NEGATIVE (06/23/2023 1:50:00 PM) US: 6W 4D (11/25/2022 1:41:04 PM) Blood Type: O+ (11/15/2022 12:57:48 PM) RH Type: positive (11/15/2022 9:48:22 AM) Last Antibody Screen: negative (11/15/2022 9:48:22 AM) Chlamydia: NEGATIVE (11/15/2022 11:55:00 AM) RPR: Non Reactive (11/15/2022 12:29:00 PM) - HPI Diagnosis/Indication for NST: Other (getting ready for induction) Current EDU 07/17/23 Gestation 40 Weeks and 3 Days 1 Vital Signs Temperature 97.9 F 07/20/23 09:54 Temperature 97.9 F 07/20/23 09:54 Heart Rate Respiratory Rate Blood Pressure O2 Saturation If not protocol: Oxygen Flow, liters/minute - NST Procedure NST Procedure Start Time 16:58 Stop Time 17:35 - Results and Plan Findings/Impression: Reactive for of 32 weeks gestation or more. NST tracing contains at least two heart rate accelerations that are at least 15 beats per minute above the baseline rate and lasting at least 15 seconds from onset to return to baseline within a twenty minute period. Plan: proceed with induction Meds/Allgy - Home Medications Home Medications: Ambulatory Orders Medication Instructions Recorded Confirmed Levothyroxine [Synthroid] 1 tab PO DAILY 01/01/19 01/01/19 Metformin HCl 500 mg PO BID 07/16/19 07/16/19 Doxycycline Hyclate 100 mg PO BID #19 capsule 12/19/19 - Allergies Allergies/Adverse Reactions: Allergies Allergy/AdvReac Type Severity Reaction Status Date / Time No Known Drug Allergies Allergy Verified 01/01/19 19:36 Review of Systems - Cardiovascular Cariovascular: denies: Edema - Gastrointestinal Gastrointestinal: denies: Abdominal pain - Neurological Neurological: denies: Headache Physical - Abdominal Exam Vital Signs: Temp Pulse Resp BP Pulse Ox O2 Flow Rate 97.9 F 07/20/23 09:54 Contraction Frequency (min/apart): none - Monitoring Heart Rate Baseline: 135 Strip Review: positive: Category I - Presentation Presentation: positive: Vertex - Vaginal Exam Membranes: positive: Membranes intact Dilation (in cm): 2 Effacement (%): 80 Station: positive: Ballotable Cervical Position: positive: Posterior - Speculum Exam Speculum Exam Performed: positive: No Plan for Labor - Plan For Labor I expect patient to be DC'd or transferred within 96 hours.: Yes Plan for Labor: labor induction at term due to obesity. 40w 3d today. will start with miso. great that she is 2 cm now and not closed. induction process, risks, benefits discussed. consents signed.
--- NOTE | 2023-07-20 21:50 | PROVIDER PROGRESS NOTE ---
Labor Progress Note - Uterine Monitoring Uterine Monitoring Mode: positive: External toco Contraction Frequency (min/apart): few Contraction Intensity: positive: Mild - Monitoring Monitor Mode: positive: External ultrasound Heart Rate Baseline: 135 Heart Rate Variability: positive: Moderate (6-25 bmp) Accelerations: positive: Present, 15x15 Decelerations: positive: None Strip Review: positive: Category I - Vaginal Exam Dilation (in cm): 4 Effacement (%): 80 Station: -2 (but still blottable) - Labor Progress Note Labor Progress Note/Additional Text: will give one more miso. last one made some good contractions and then they stopped. hopefully one more will get her into active labor.
[2023-07-20] MEDS: ZOLPIDEM 5 MG TABLET PO PRN (22:49)
[2023-07-21] MEDS ORDERED: ROPIVACAINE 0.2% 200 MG/100 ML BAG EP ONE (06:03)
[2023-07-21] MEDS: LACTATED RINGERS 1,000 ML IV SCH (06:10)
[2023-07-21] MEDS ORDERED: LIDOCAINE 2%-EPI 1:100000 20 ML MDV ONE (06:17)
--- NOTE | 2023-07-21 07:02 | ANESTHESIA ---
Pre-Anesthesia VS, & Labs - Diagnosis labor pain - Procedure labor epidural Vital Signs: Temp Pulse Resp BP Pulse Ox O2 Flow Rate 36.6 C 07/20/23 09:54 Height: 5 ft 4 in Weight (kg): 126.552 kg Body Mass Index: 47.9 BMI Classification: Morbidly Obese - NPO >8 hours - Is Patient ?: Yes - Lab Results Current Lab Results: Laboratory Tests 07/20/23 09:25: WBC 10.6, RBC 4.77, Hgb 12.7, Hct 40.3, MCV 84.5, MCH 26.6 L, MCHC 31.5 L, RDW 14.4, Plt Count 313, MPV 11.0 H, Neut # (Auto) 7.2 H, Lymph # (Auto) 2.6, Josephine # (Auto) 0.6, Eos # (Auto) 0.1, Baso # (Auto) 0.0, Absolute Nucleated RBC 0.00, Nucleated RBC % 0.0 07/20/23 09:25: Blood Type O POSITIVE, Antibody Screen NEGATIVE Fish Bones: 07/20/23 09:25 Home Medications and Allergies Active Medications Carboprost Tromethamine (Carboprost Tromethamine 250 Mcg/Ml Vial) 250 mcg IM Q15M PRN PRN Reason: Step 4: Hemorrhage protocol Oxytocin/Sodium Chloride (Pitocin/Sodium Chloride) 500 mls @ 999 mls/hr IV PRN PRN; Protocol PRN Reason: POST- HEMORR PREVENTION Stop: 07/25/23 09:11 Tranexamic Acid (Tranexamic 1,000 Mg/100ml-Nacl) 1,000 mg in 100 mls @ 600 mls/hr IV .ONCE PRN PRN Reason: EBL >1200mL and within 3hr Stop: 07/25/23 09:11 Oxytocin/Sodium Chloride (Pitocin/Sodium Chloride) 500 mls @ 1 mls/hr IV TITR LUIS ALFREDO; Protocol Oxytocin/Sodium Chloride (Pitocin/Sodium Chloride) 500 mls @ 999 mls/hr IV PRN PRN; Protocol PRN Reason: POST- HEMORR PREVENTION Lactated Ringer's (Lr) 1,000 mls @ 100 mls/hr IV .Q10H LUIS ALFREDO Last Admin: 07/21/23 06:10 Dose: 500 mls/hr Lidocaine HCl (Lidocaine 1% 20 Ml Mdv) 20 ml ID .ONCE PRN PRN Reason: PERINEAL REPAIR Stop: 07/25/23 09:11 Methylergonovine Maleate (Methylergonovine 0.2 Mg/Ml Vial) 0.2 mg IM .ONCE PRN PRN Reason: Step 2: Hemorrhage protocol Stop: 07/25/23 09:11 Misoprostol (Misoprostol 200 Mcg Tablet) 800 mcg BC .ONCE PRN PRN Reason: Step 3: Hemorrhage protocol Stop: 07/25/23 09:11 Misoprostol (Misoprostol 100 Mcg Tablet) 25 mcg VG Q4HR LUIS ALFREDO Last Admin: 07/21/23 03:03 Dose: 25 mcg Ondansetron HCl (Ondansetron 4 Mg/2 Ml Vial) 4 mg IVP Q4HR PRN PRN Reason: Nausea / Vomiting Ondansetron HCl (Ondansetron Odt 4 Mg Tablet) 4 mg TL Q4HR PRN PRN Reason: Nausea / Vomiting Oxytocin (Oxytocin 10 Unit/Ml Vial) 10 unit IM .ONCE PRN PRN Reason: Step one: If no IV access Stop: 07/25/23 09:11 Sodium Chloride (Sodium Chloride Flush 0.9% 10 Ml Syringe) 10 ml IVP PRN PRN PRN Reason: NEEDED PER PROVIDER ORDERS Zolpidem Tartrate (Zolpidem 5 Mg Tablet) 5 mg PO QPM PRN PRN Reason: Insomnia Last Admin: 07/20/23 22:49 Dose: 5 mg Levothyroxine [Synthroid] 1 tab PO DAILY 01/01/19 Metformin HCl 500 mg PO BID 07/16/19 Allergies/Adverse Reactions: Allergies Allergy/AdvReac Type Severity Reaction Status Date / Time No Known Drug Allergies Allergy Verified 01/01/19 19:36 Anes History & Medical History - Anesthetic History Anesthesia Complications: reports: No previous complications Family history of Anesthesia Complications: Denies Family history of Malignant Hyperthermia: Denies - Medical History Cardiovascular: reports: None Pulmonary: reports: None Endocrine/Autoimmune: reports: HyPERthyroidism Smoking Status: Never smoker - Other History Other History: morbid obesity Exam General: Alert, Oriented x3, Cooperative Dental: WNL Mouth Openin Fingerbreadth Neck Mobility: Normal Mallampati classification: III Thyromental Distance: less than 4 cm Respiratory: Lungs clear Cardiovascular: Regular rate Plan Anesthesia Type: Epidural Consent for Procedure(s) Verified and Reviewed: Yes Code Status: Attempt Resuscitation ASA classification: 3-Severe systemic disease Is this case an emergency?: No
[2023-07-21] MEDS ORDERED: ONDANSETRON 4 MG/2 ML VIAL IVP PRN ×2 (07:04→18:40)
[2023-07-21] MEDS ORDERED: NALOXONE 0.4 MG/ML VIAL IVP PRN (07:04)
[2023-07-21] MEDS ORDERED: METOCLOPRAMIDE 10 MG/2 ML VIAL IVP PRN (07:04)
[2023-07-21] MEDS ORDERED: diphenhydrAMINE INJ 50 MG/ML VIAL IVP PRN (07:04)
[2023-07-21] MEDS ORDERED: ePHEDrine 50 MG/ML VIAL IVP PRN (07:04)
[2023-07-21] MEDS ORDERED: NALBUPHINE 10 MG/ML AMP IVP PRN (07:04)
[2023-07-21] MEDS: LACTATED RINGERS 500 ML IV ONE (07:58)
[2023-07-21] MEDS: OXYTOCIN/SODIUM CHLORIDE 500 ML IV SCH (08:01)
--- NOTE | 2023-07-21 08:45 | PROVIDER PROGRESS NOTE ---
Objective - Vital Signs/Intake & Output Intake & Output: Intake & Output 07/18/23 07/19/23 07/20/23 07/21/23 23:59 23:59 23:59 23:59 Intake Total 1016.667 Balance 1016.667 - Lab Results Fish Bones: 07/20/23 09:25 Other Labs: Lab Results x24hrs 07/20/23 07/20/23 Range/Units 09:25 09:25 WBC 10.6 (4.8-10.8) x10^3/uL RBC 4.77 (4.20-5.40) 10^6/uL Hgb 12.7 (12.0-16.0) g/dL Hct 40.3 (37.0-47.0) % MCV 84.5 (81.0-99.0) fL MCH 26.6 L (27.0-31.0) pg MCHC 31.5 L (32.0-36.0) g/dL RDW 14.4 (12.0-15.0) % Plt Count 313 (130-450) 10^3/uL MPV 11.0 H (7.9-10.8) fL Neut # (Auto) 7.2 H (1.5-6.6) 10^3/uL Lymph # (Auto) 2.6 (1.5-3.5) 10^3/uL [place] # (Auto) 0.6 (0.0-1.0) 10^3/uL Eos # (Auto) 0.1 (0.0-0.7) 10^3/uL Baso # (Auto) 0.0 (0.0-0.1) 10^3/uL Absolute Nucleated RBC 0.00 x10^3/uL Nucleated RBC % 0.0 /100WBC Blood Type O POSITIVE Antibody Screen NEGATIVE
--- NOTE | 2023-07-21 08:47 | PROVIDER PROGRESS NOTE ---
Labor Progress Note - Uterine Monitoring Uterine Monitoring Mode: positive: External toco Contraction Frequency (min/apart): Difficult to trace on her side Other Uterine Monitoring: Will place IUPC - Monitoring Monitor Mode: positive: External ultrasound Heart Rate Baseline: 150 Heart Rate Variability: positive: Minimal (0-5 bpm) Accelerations: positive: Absent Decelerations: positive: Early Strip Review: positive: Category II - Vaginal Exam Dilation (in cm): 9 Effacement (%): 100 Station: 0 - Labor Progress Note Labor Progress Note/Additional Text: Patient comfortable with epidural. Contractions every several minutes with early decelerations, but not picking up while on her side. Will place IUPC. Had decelerations when rolled to left side and resolved with return to right. Received ambien overnight and still minimal variability. Will assess for acceleration during IUPC placement.
[2023-07-21] MEDS ORDERED: DEXTROSE 5%-LACTATED RINGERS 1,000 ML IV ONE (09:41)
[2023-07-21] MEDS: DEXTROSE 5%-LACTATED RINGERS 1,000 ML IV SCH (09:48)
[2023-07-21] MEDS: ONDANSETRON 4 MG/2 ML VIAL IVP PRN (10:49)
[2023-07-21] MEDS ORDERED: SODIUM CHLORIDE 0.9% 1,000 ML ONE (10:52)
[2023-07-21] MEDS: SODIUM CHLORIDE 0.9% 1,000 ML IY ONE (10:55)
--- NOTE | 2023-07-21 12:21 | PROVIDER PROGRESS NOTE ---
Labor Progress Note - Uterine Monitoring Uterine Monitoring Mode: positive: IUPC Contraction Frequency (min/apart): 3 Contraction Intensity: positive: Moderate to strong Uterine Resting Tone: positive: Soft - Monitoring Monitor Mode: positive: Spiral electrode Heart Rate Baseline: 165 Heart Rate Variability: positive: Moderate (6-25 bmp) Accelerations: positive: Present, 15x15 Decelerations: positive: Late, Variable, Intermittent (<50% x20 min) Strip Review: positive: Category II - Vaginal Exam Dilation (in cm): 10 Effacement (%): 100 Station: 0 - Labor Progress Note Labor Progress Note/Additional Text: Pushing effectively. Intermittent late/variable decelerations. Improved with amnioinfusion. Continue to push at this time. Did discuss normal progression and worry if heart worsens. Still good variability and no sign of immanent deterioration.
[2023-07-21] MEDS: ROPIVACAINE 0.2% 200 MG/100 ML BAG EP PRN (13:02)
[2023-07-21] MEDS ORDERED: SODIUM CHLORIDE 0.9% 10 ML VIAL IVP ONE (14:54)
[2023-07-21] MEDS ORDERED: fentaNYL 100 MCG/2 ML VIAL ONE (14:54)
[2023-07-21] MEDS ORDERED: LIDOCAINE-PF 2% 10 ML AMP SUBQ ONE (14:54)
[2023-07-21 15:29] LABS: BILIRUBIN,URINE NEGATIVE (NEGATIVE); GLUCOSE, URINE (UA) NEGATIVE (NEGATIVE); KETONES,URINE (UA) NEGATIVE (NEGATIVE); LEUKOCYTE ESTERASE, URINE TRACE (NEGATIVE); NITRITE,URINE NEGATIVE (NEGATIVE); OCCULT BLOOD,URINE LARGE (NEGATIVE); PROTEIN,URINE >=300 mg/dL (NEGATIVE); UROBILINOGEN,URINE 0.2 (NORMAL) E.U./dL (NORMAL)
[2023-07-21 15:35] LABS: CLARITY,URINE HAZY (CLEAR)
--- NOTE | 2023-07-21 15:45 | PROVIDER PROGRESS NOTE ---
Labor Progress Note - Uterine Monitoring Uterine Monitoring Mode: positive: IUPC Contraction Frequency (min/apart): 2-3 Contraction Intensity: positive: Moderate to strong - Monitoring Monitor Mode: positive: External ultrasound Heart Rate Variability: positive: Minimal (0-5 bpm) Accelerations: positive: Absent Decelerations: positive: Early Strip Review: positive: Category II - Vaginal Exam Dilation (in cm): 10 Effacement (%): 100 Station: 0 - Labor Progress Note Labor Progress Note/Additional Text: Patient asked for section, but discussed with her mother and changed her mind. She would like a bolus of her epidural then try pushing again. Discussed that FHT is category 2 with minimal variability with occasional moderate, but no accelerations. Decelerations have stopped, but having early with contractions. Discussed that we can try again, but she is too high for vacuum assistance and if heart tracing worsens, we should perform a . Risks, benefits and alternatives were discussed including but not limited to infection, bleeding that may require blood products or hysterectomy for life saving measures, injury to surrounding organs including but not limited to bowel, bladder, ureters, tubes and ovaries and/or the baby. Should injury occur it could require longer/additional surgery to repair. All questions were answered posed by simran juarez
--- NOTE | 2023-07-21 15:47 | ANESTHESIA PROCEDURE NOTE ---
Anesthesia Epidural Template - Patient Report Patient Reports: positive: Inadequate control - Plan Plan: positive: Other - Other Comments Other Comments: Patient reports pain with contractions in back and lower abdomen. Site looks good, no movement of catheter. Epidural bolused with 5ml of 2% lidocaine, 100 mcg fentanyl and 5ml of PFNS. After bolus, patient is sleeping thru her contractions.
[2023-07-21 15:49] LABS: BASOPHILS % (AUTO) 0.2 %; HCT - HEMATOCRIT 39.2 % (37.0-47.0); HGB - HEMOGLOBIN 12.5 g/dL (12.0-16.0); LYMPHOCYTES # (AUTO) 1.5 10^3/uL (1.5-3.5); LYMPHOCYTES % (AUTO) 8.4 %; MEAN CORPUSCULAR HEMOGLOBIN 27.2 pg (27.0-31.0); MEAN CORPUSCULAR HGB CONC 31.9 g/dL (32.0-36.0); MEAN CORPUSCULAR VOLUME 85.2 fL (81.0-99.0); MONOCYTES % (AUTO) 5.5 %; NEUTROPHILS # (AUTO) 15.1 10^3/uL (1.5-6.6); NEUTROPHILS % (AUTO) 85.4 %; PLT - PLATELET COUNT 320 10^3/uL (130-450); RED CELL DISTRIBUTION WIDTH 14.5 % (12.0-15.0); WHITE BLOOD COUNT 17.6 x10^3/uL (4.8-10.8)
[2023-07-21 15:56] LABS: ALBUMIN 3.4 g/dL (3.2-5.5); BILIRUBIN,TOTAL 0.3 mg/dL (0.2-1.0); CALCIUM 9.3 mg/dL (8.5-10.3); CREATININE 0.8 mg/dL (0.6-1.3); POTASSIUM 4.7 mmol/L (3.5-4.5); TOTAL PROTEIN 6.7 g/dL (6.4-8.9)
[2023-07-21 15:59] LABS: BACTERIA,URINE Rare /HPF (None Seen); EPITHELIAL CELLS,UR FEW Renal Tubular /HPF (<= Few); RBC,URINE TNTC /HPF (0-5); SQUAMOUS EPITHELIAL CELL,UR MANY Squamous (<= Few)
--- NOTE | 2023-07-21 16:03 | PROVIDER PROGRESS NOTE ---
Labor Progress Note - Labor Progress Note Labor Progress Note/Additional Text: Discussed again and recommended proceeding with surgery and against taking a nap or with further pushing. Now with meconium stained fluid. Explained that baby is stressed and I do not want to let condition worsen. Patient asked if lack of progress is because she hasn't eaten. That may contribute, but has been getting d5, so less likely that juice will help. Reiterated that we can't start oxytocin to strengthen contractions. Discussed minimal variability and absence of accelerations for several hours. If heart tracing worsens with contractions, will need to proceed with .
[2023-07-21 17:25] LABS: CREATININE,URINE 216.1 mg/dL
[2023-07-21 17:35] LABS: PROTEIN/CREATININE RATIO,URINE 1.6 (<=0.2)
[2023-07-21] MEDS ORDERED: hydrALAZINE INJ 20 MG/ML VIAL IVP PRN ×2 (17:50)
[2023-07-21] MEDS ORDERED: LABETALOL 20 MG/4 ML SYRINGE IVP PRN ×2 (17:50)
[2023-07-21] MEDS ORDERED: NIFEdipine 10 MG CAPSULE PO PRN (17:50)
[2023-07-21] MEDS ORDERED: LABETALOL 20 MG/4 ML SYRINGE IVP ONE (17:54)
[2023-07-21] MEDS: LABETALOL 20 MG/4 ML SYRINGE IVP PRN (17:58)
[2023-07-21] MEDS: OXYTOCIN/SODIUM CHLORIDE 500 ML IV PRN (18:17)
[2023-07-21] MEDS ORDERED: SIMETHICONE CHEW 80 MG TABLET PO PRN (18:40)
[2023-07-21] MEDS ORDERED: CALCIUM CARBONATE CHEW 500 MG TABLET PO PRN (18:40)
--- NOTE | 2023-07-21 19:02 | DELIVERY NOTE ---
Delivery Note - Infant Delivery Method Infant Delivery Method: positive: Spontaneous vaginal delivery - Cervical Ripening Method Cervical Ripening Method: positive: Misoprostil - Presentation Presentation: positive: TATA - right occiput anterior - Nuchal Cord Nuchal Cord: positive: Present (x2), Reduced - Anesthetic Anesthetic Type: - Amniotic Fluid Description Amniotic Fluid Description: positive: Moderate meconium - Laceration Laceration: positive: Labial - Suture Suture Type: positive: Vicryl Suture Size: positive: 3-0 - Delivery Outcome Delivery Outcome: positive: Livebirth - Holton Holton: positive: Other (See delivery note for details.) Holton sex: positive: Female - Cord Cord: positive: 3 vessels - Placenta Placenta: positive: Intact - Estimated Blood Loss Estimated Blood Loss (in cc): 300 - Post Delivery Events Post Delivery Events: positive: Shoulder dystocia - Delivery Comments (Free Text/Narrative) Delivery Comments (Free Text/Narrative): Preoperative Diagnoses 40 weeks gestation Obesity Postoperative Diagnoses Same Category 2 tracing Spontaneous vaginal delivery Delivery of live mulligan Shoulder dystocia Preeclampsia with severe features Patient is admitted at 40 weeks gestation for induction of labor. She had misoprostol after being checked and found to be 2 cm. She progressed overnight and had spontaneous rupture of membranes. She then progressed to complete and ready to push. She did have a category 2 tracing when she began pushing as intermittent. She requested several naps/ breaks. She received an amnioinfusion with some resolution of category 2 tracing and some D5LR. She then reached a point where she was tired and while she initially requested a , after talking with her mother, decided against it. She also noted to have meconium- stained fluid at that point. section was recommended several times due to minimal variability. Finally she decided to push again and progressed until . Delivery Summary: Patient was placed in the dorsal lithotomy position. Upon maternal pushing the head was delivered atraumatically and a nuchal cord x 2 was reduced. We then attempted to deliver the fetus, but a shoulder dystocia was noted. Jadon position and suprapubic pressure were performed. The patient was asked not to push. Rotational maneuvers were attempted, but unsuccessful. The posterior shoulder was then delivered, but prior to deliver the posterior arm, the anterior shoulder was free and the remainder of the delivered. A female infant was delivered. The cord was clamped and cut and taken to the warmer for resuscitation. See delivery note for details. Iin total approximately 1 minute 25 seconds of shoulder dystocia was noted. The placenta delivered intact with three vessel cord. Placenta was not sent to pathology. Cord gases were collected. Thirty units of Pitocin were added to the IV fluid and allowed to run freely. Uterine massage was performed until uterus was deemed firm. Upon inspection of the perineum, several small mucosal tears were noted in the right and left sidewalls and repaired with [id number] stitches of 3-0 Vicryl. Upon re-inspection the patient was hemostatic. Uterus again massaged and found to be firm. Needle and sponge counts were correct. was taken to the nursery for further assessment. Patient developed severe-ranged blood pressures at delivery and was initially treated with normal labs, but as they persisted, was started on magnesium sulfate for preeclampsia with severe features. APGARS of 2/2/7 weight 3515 g
[2023-07-21] MEDS: MAGNESIUM SULFATE 4 GRAM 4 GM/50 ML BAG IV ONE (20:09)
[2023-07-21] MEDS: MAGNESIUM SULFATE IN WATER 20 GM/500 ML IV.SOLN IV SCH (20:38)
[2023-07-22] MEDS ORDERED: LIDOCAINE-PF 2% 10 ML AMP SUBQ ONE (05:49)
[2023-07-22] MEDS ORDERED: SODIUM CHLORIDE 0.9% 10 ML VIAL IVP ONE (05:49)
[2023-07-22] MEDS ORDERED: fentaNYL 100 MCG/2 ML VIAL ONE (05:49)
[2023-07-22] MEDS: LACTATED RINGERS 1,000 ML IV SCH (06:50)
[2023-07-22] MEDS: IBUPROFEN 600 MG TABLET PO SCH (06:52)
[2023-07-22] MEDS: ACETAMINOPHEN 500 MG TABLET PO SCH (06:52)
[2023-07-22] MEDS: DOCUSATE SODIUM 100 MG CAPSULE PO PRN (08:32)
[2023-07-22 13:50] LABS: CREATININE,URINE 51.7 mg/dL; PROTEIN/CREATININE RATIO,URINE 0.4 (<=0.2)
--- NOTE | 2023-07-22 15:08 | PHARMACY PROGRESS NOTE ---
- Best Possible Medication History Admit Date and Time: 07/20/23 0909 Processed by: Pharmacy Medications reviewed in ED?: No Medication History completed: Yes Patient Interview: Pt unable to participate Secondary Source(s): Physician records As the person ultimately responsible for medication therapy, providers are able to order a medication from an existing home medication list in [facility] via the "Reconcile Routine" prior to Confirmation of that medication by office support specialist. Such practice is discouraged except when the physician, in their clinical judgment, deems that a medical need exists for a medication without regard to previous use.
--- NOTE | 2023-07-22 17:40 | PROVIDER PROGRESS NOTE ---
Subjective - Subjective Pt reports feeling: Improved Subjective: Saw patient earlier today. she and baby are doing well. last bp now 120/60. I turned her magnesium off at noon. At that time she was feeling great. No headache. very little swelling. good urine output. bps for last 12 hours normal without medication. She is eating well. Her dad and sister were visiting when I was there at noon. Objective - Vital Signs/Intake & Output Reviewed Vital Signs: Yes Vital Signs: Vital Signs x48h Temp Pulse Resp BP Pulse Ox 07/22/23 16:03 98.1 F 88 16 123/69 98 07/22/23 13:10 97.5 F L 85 16 120/60 98 07/22/23 11:00 92 16 121/53 L 98 07/22/23 10:00 101 H 16 118/56 L 98 Intake & Output: Intake & Output 07/19/23 07/20/23 07/21/23 07/22/23 23:59 23:59 23:59 23:59 Intake Total 3498.330 2671.25 Output Total 2595 2900 Balance 903.330 -228.75 - Objective General Appearance: positive: No acute distress Abdomen: positive: Non-tender Extremities: positive: Other (small edema. not tender. SCDs were on when magnesium was on.) - Lab Results Fish Bones: 07/21/23 15:38 07/21/23 15:38 Other Labs: Lab Results x24hrs 07/22/23 07/21/23 Range/Units 13:25 15:13 Urine Creatinine 51.7 mg/dL Ur Total Protein Timed 20 355 mg/dL Protein/Creatinin Ratio 0.4 H 1.6 H (<=0.2) Assessment/Plan - Problem List (1) Preeclampsia in period Impression: bps are stable without medication. magnesium is off now for 5 hours. doing well. making good urine output. baby doing well. urine protein still elevated from catheter specimen. hopefully she will do well and be able to go home tomorrow.
[2023-07-22 23:59] VITALS: O2SAT 100
[2023-07-23 08:46] VITALS: BP 122/60
--- NOTE | 2023-07-23 14:23 | Labor Flowsheet ---
Labor Flowsheet Datetime Report Generated by CPN: 07/23/2023 14:23 Datetime: 07/23/2023 08:29 VITAL SIGNS NBP Sys/Apurva/Mean (mmHg): 122 : 60 : 74 Pulse: 100 Datetime: 07/22/2023 11:24 SpO2 (%): 98 Datetime: 07/21/2023 19:00 Stage of : Recovery Datetime: 07/21/2023 18:44 LaborFlag: Labor Datetime: 07/21/2023 18:15 ASSESSMENT A Monitor Mode: External US Monitor Interventions for FHR: Ultrasound Adjusted FHR Baseline Rate : 150 Variability: Moderate 6-25 bpm Accelerations: 15X15 Decelerations: Late; Variable Category: Category II Datetime: 07/21/2023 18:14 Comments: HEAD Datetime: 07/21/2023 18:00 UTERINE ACTIVITY Monitor Mode: Internal Frequency (min): 1.5-5 Quality: Strong Duration (sec): 60-90 Pattern: Normal: <= 5 Contractions in 10 Minutes Resting Tone (Palpate): Relaxed Resting Tone IUP (mmHg): 25 Intensity IUP (mmHg): 100 Datetime: 07/21/2023 17:58 Medication Comments: 20mg Labetalol IVP Datetime: 07/21/2023 17:46 Station: 1 Datetime: 07/21/2023 17:42 Temperature (C): 37.1 Datetime: 07/21/2023 17:38 I/O Interventions: [place] Discontinued Patient Care Comments: Per Dr.Minh Datetime: 07/21/2023 16:46 STAGE 2 Pushing Position: Pushing Lithotomy Pushing Progress: No Descent with Effective Pushing Datetime: 07/21/2023 16:00 Vital Sign Comments: pt pushing during BP reading; retaking BP Datetime: 07/21/2023 15:30 Contraction Comments: IUPC replaced Datetime: 07/21/2023 15:24 Amniotic Fluid Color: Light Meconium Datetime: 07/21/2023 14:44 Exam by: Dr.Minh Datetime: 07/21/2023 14:41 COMMUNICATION Communication: Provider at Bedside Datetime: 07/21/2023 14:15 Pain Assessment Comments: pt resuming pushing with tug of war Stage 2 Comments: with right tilt Datetime: 07/21/2023 13:33 Patient Position/Activity: High Fowlers Datetime: 07/21/2023 12:45 FHR Baseline Changes: Tachycardia Datetime: 07/21/2023 11:02 Amnioinfusion: Continues Datetime: 07/21/2023 11:00 [place] Units (mmHg): 105 Datetime: 07/21/2023 10:49 MEDICATIONS Antiemetics/Antacids: Zofran (mg) @ 4 Datetime: 07/21/2023 10:04 VAGINAL EXAM Dilatation (cm): 10.0 Effacement (%): 100 Datetime: 07/21/2023 08:55 Monitor Interventions for UA: IUPC Inserted Datetime: 07/21/2023 08:32 Membranes Ruptured Date/Time: 07/21/2023 05:50 Amniotic Fluid Amount: Moderate Amniotic Fluid Odor: Normal Datetime: 07/21/2023 07:57 Actions for Decelerations: IV Bolus Datetime: 07/21/2023 06:50 PAIN Pain Scale: 3 Pain Presence: Intermittent Pain Type: Cramping Pain Relief Measures: Epidural Given Datetime: 07/21/2023 06:45 Anesthesia Level Check: T11 Datetime: 07/21/2023 06:40 PATIENT CARE IV/Blood Work: IV Bolus Given ml @ 500 Datetime: 07/21/2023 06:38 Provider Reviewed Strip: Yes Provider Notified (Name): Dr Barragan Notification Reason: Status Update; Status; Labor Status; Pain Communication Comments: OB provider here in FBP Datetime: 07/21/2023 06:31 Epidural Procedure: Test Dose Datetime: 07/21/2023 06:27 PROCEDURE TIME OUT Procedure Verify: Correct Patient Identity; Correct Side and Site are Marked; Accurate Procedure Co nsent Form; Agreement on Procedure to be Done; Correct Patient Position; Relevant Images and Results are Properly Labeled and Displayed; Addressed Need to Administer Antibiotics or Fluids for Irrigation ; Safety Precautions Based on Patient History or Medication Use Datetime: 07/21/2023 06:26 Epidural Positioning: Sitting Datetime: 07/21/2023 06:07 Anesthesia Comments: anesthesia at bs Datetime: 07/21/2023 05:51 ANESTHESIA Anesthesia Plans: Epidural Datetime: 07/21/2023 05:50 Membrane Status: Ruptured Membranes Rupture Method: Spontaneous Datetime: 07/21/2023 05:34 Vaginal Bleeding: None Cervix, Consistency: Soft Cervix, Position: Midposition Lie 'A': Transverse Datetime: 07/21/2023 05:02 Pain Coping: Talking Through Contractions Comfort Measures: Coaching Datetime: 07/21/2023 03:07 Respirations: 16 Datetime: 07/21/2023 03:04 Cervical Ripening Agents: Cytotec @ Datetime: 07/20/2023 22:06 Strip Reviewed by: [email or web address] Datetime: 07/20/2023 20:33 TEACHING Instructional Method: Verbal Unit Routine: Monitoring Datetime: 07/20/2023 19:45 MATERNAL ASSESSMENT Level of Consciousness: Alert Headache: Denies Breath Sounds, Left: Clear and Equal Breath Sounds, Right: Clear and Equal Nausea/Vomiting: Denies RUQ Epigastric Pain: Denies Plan of Care: Plan of Care Discussed Datetime: 07/20/2023 17:55 Vaginal Exam Comments: ballotable Datetime: 07/20/2023 15:07 Pain Goal: 6 Datetime: 07/20/2023 08:18 Labor/Induction: Cervical Ripening; Augmentation; Induction; Tachysystole Interventions; Activity; Pushing Methods Pain Management: IV Narcotics; Epidural; PRN Medications; Pain Scale/Goals; Comfort Measures Medications: Cervical Ripening; Pitocin Related: Nutrition; Hydration; Activity and Rest
--- NOTE | 2023-07-23 21:29 | DISCHARGE SUMMARY ---
"Discharge Summary Admit Date: 07/20/23 Discharge Date: 07/23/23 Discharging Provider: Greta Barragan MD Code Status: Attempt Resuscitation - DIAGNOSES Admission Diagnoses: at 40 weeks presenting for labor induction. morbidly obese. Discharge Diagnoses with Status of Each Condition: vaginal delivery shoulder dystocia, resolved post preeclampsia with severe range bps. resolved. morbid obesity, stable. - HPI History of Present Illness: pateint is at term with her first . comes for induction. uncomplicated except her BMI of 47. - CONSULTS | PROCEDURES Procedures: vaginal delivery - HOSPITAL COURSE Hospital Course: patient presented in am on 07/19 2 cm dilated, 80 % effaced. baby was high. miso during day and thru night. epidural when 6 cm in am 07/20 then was 9 cm soon after. She took a nap and then was complete. She did not want to push. wanted to nap. wanted to eat. was recommended a c section and declined. In the end, had a 6 hours second stage. shoulder dystocia with deliver last 1.5 to 2 minutes. baby delivered with Apgars of 2/2/7. had to be intubated. then did well pretty quickly. did not have any injury apparent from the shoulder dystocia. After delivery patient had very high bp and dx of preeclampsia was made. She was started on magnesium for seizure prophylaxis. Her bp went down spontaneously. by 18 hrs later she was feeling great and bps were normal so magnesium was stopped. She was diuresing well. She was watched another 24 hrs and no high bps and was discharged home. She was mostly bottle feeding. She was shy about putting her baby to breast in the hospital. We discussed what to look for in terms of recurrent elevated bps and when to return or call. She and her partner voiced understanding. - ALLERGIES Allergies/Adverse Reactions: Allergies Allergy/AdvReac Type Severity Reaction Status Date / Time No Known Drug Allergies Allergy Verified 01/01/19 19:36 - MEDICATIONS Home Medications: Ambulatory Orders Medication Instructions Recorded Confirmed Aspirin Chewable [[place] 81 mg PO DAILY 07/22/23 07/22/23 Aspirin] Pnv No.95/Ferrous Fum/Folic AC 1 tab PO DAILY 07/22/23 07/22/23 [ Tablet] - PHYSICAL EXAM AT DISCHARGE General Appearance: positive: No acute distress Respiratory: positive: No respiratory distress Skin: positive: Color nml Extremities: positive: Other (minimal edeam.) - LABS Result Diagrams: 07/21/23 15:38 07/21/23 15:38 - FOLLOW UP Follow Up: in clinic next week to recheck bp. will call Tuesday. - TIME SPENT Time Spent in Discharge (Minutes): 39"
== END 2023-07-23 14:18 | disposition home or self-care (01) | DRG 807 ==
LOC: WFO 07:55 → FBP 07:58 → WFO 09:08 → FBP 09:09
PROVIDERS: ADMIT Obstetrics & Gynecology; ATTEND Obstetrics & Gynecology
PROC: 3E033VJ Introduction of Other Hormone into Peripheral Vein, Percutaneous Approach (ICD-10-PCS; 2023-07-20)
PROC: 3E0DXGC Introduction of Other Therapeutic Substance into Mouth and Pharynx, External Approach (ICD-10-PCS; 2023-07-20)
PROC: 10E0XZZ Delivery of Products of Conception, External Approach (ICD-10-PCS; principal; 2023-07-21)
PROC: 0HQ9XZZ Repair Perineum Skin, External Approach (ICD-10-PCS; 2023-07-21)
PROC: 10H07YZ Insertion of Other Device into Products of Conception, Via Natural or Artificial Opening (ICD-10-PCS; 2023-07-21)
DX: O99.214 Obesity complicating childbirth (principal); Z37.0 Single live birth; E66.01 Morbid (severe) obesity due to excess calories; Z3A.40 40 weeks gestation of pregnancy; O66.0 Obstructed labor due to shoulder dystocia; O14.15 Severe pre-eclampsia, complicating the puerperium; O99.284 Endocrine, nutritional and metabolic diseases complicating childbirth; E28.2 Polycystic ovarian syndrome; O77.0 Labor and delivery complicated by meconium in amniotic fluid; O69.81X0 Labor and delivery complicated by cord around neck, without compression, not applicable or unspecified; O70.9 Perineal laceration during delivery, unspecified; O76 Abnormality in fetal heart rate and rhythm complicating labor and delivery
CPT/HCPCS: 36415; 59409; 80053; 81001; 82570; 84156; 85025; 86850; 86900; 86901; 87086; J3475

== ENCOUNTER 2023-08-07 08:31 | Emergency (ER) | payer BC ==
[2023-08-07 09:00] LABS: BASOPHILS % (AUTO) 0.5 %; EOSINOPHILS # (AUTO) 0.2 10^3/uL (0.0-0.7); HCT - HEMATOCRIT 42.8 % (37.0-47.0); LYMPHOCYTES # (AUTO) 2.2 10^3/uL (1.5-3.5); LYMPHOCYTES % (AUTO) 28.7 %; MEAN CORPUSCULAR HEMOGLOBIN 26.3 pg (27.0-31.0); MEAN CORPUSCULAR HGB CONC 30.4 g/dL (32.0-36.0); MEAN CORPUSCULAR VOLUME 86.6 fL (81.0-99.0); MEAN PLATELET VOLUME 10.1 fL (7.9-10.8); MONOCYTES # (AUTO) 0.4 10^3/uL (0.0-1.0); MONOCYTES % (AUTO) 5.3 %; NEUTROPHILS # (AUTO) 4.8 10^3/uL (1.5-6.6); NEUTROPHILS % (AUTO) 63.2 %; PLT - PLATELET COUNT 415 10^3/uL (130-450); RED BLOOD COUNT 4.94 10^6/uL (4.20-5.40); RED CELL DISTRIBUTION WIDTH 13.8 % (12.0-15.0); WHITE BLOOD COUNT 7.6 x10^3/uL (4.8-10.8)
--- NOTE | 2023-08-07 09:02 | ED Physician Documentation ---
PD HPI ABD PAIN - Stated complaint Stated Complaint: NAUSEA,VOMIT,RIB PX - Chief complaint Chief Complaint: Abd Pain - History obtained from History obtained from: Patient - History of Present Illness Timing - onset: How many weeks ago (2) Timing - duration: Minutes, Hours (she has had intermittent upper abd pains the past 2 weeks since giving . Had HTN with Mag IV at delivery. BP good at discharge. no prior similar abd pains.) Timing - details: Intermittant Quality: Cramping, Aching, Pain Location: RUQ, Epigastric Radiation: Chest Associated symptoms: Nausea. No: Fever, Vomiting, Diarrhea Review of Systems Constitutional: denies: Fever, Chills Nose: denies: Rhinorrhea / runny nose, Congestion Throat: denies: Sore throat Respiratory: denies: Cough PD PAST MEDICAL HISTORY - Past Medical History Cardiovascular: None Respiratory: None Endocrine/Autoimmune: HyPERthyroidism Other Past Medical History: PCOS - Past Surgical History Past Surgical History: No - Present Medications Home Medications: Ambulatory Orders Medication Instructions Recorded Confirmed HYDROcod/ACETAM 5/325 [[place] 5/325] 1 ea PO Q6H PRN #12 tablet 08/07/23 Meloxicam [Mobic] 7.5 mg PO BID 14 Days #28 tablet 08/07/23 Ondansetron Odt [Zofran] 4 mg TL Q6H PRN #10 tablet 08/07/23 - Allergies Allergies/Adverse Reactions: Allergies Allergy/AdvReac Type Severity Reaction Status Date / Time No Known Drug Allergies Allergy Verified 08/07/23 08:38 - Social History Does the pt smoke?: No Smoking Status: Never smoker Does the pt drink ETOH?: No Does the pt have substance abuse?: No - Immunizations Immunizations are current?: No Immunizations: TDAP current <10years - POLST Patient has POLST: No PD ED PE NORMAL - Vitals Vital signs reviewed: Yes - General General: Alert and oriented X 3, No acute distress, Well developed/nourished - Cardiac Cardiac: RRR, No murmur - Respiratory Respiratory: No respiratory distress, Clear bilaterally - Abdomen Abdomen: Normal bowel sounds, Soft, Non tender, Non distended, No organomegaly - Back Back: No CVA TTP - Derm Derm: Normal color, Warm and dry - Neuro Neuro: Alert and oriented X 3, No motor deficit, Normal speech Results - Vitals Vitals: Vital Signs - 24 hr 08/07/23 08/07/23 08/07/23 08:36 10:13 11:25 Temperature 36.5 C Heart Rate 79 62 66 Respiratory 16 18 16 Rate Blood Pressure 126/88 H 126/87 H 121/72 O2 Saturation 97 97 99 Oxygen O2 Source Room air - Labs Labs: Laboratory Tests 08/07/23 08/07/23 08/07/23 08:49 08:55 09:11 WBC 7.6 RBC 4.94 Hgb 13.0 Hct 42.8 MCV 86.6 MCH 26.3 L MCHC 30.4 L RDW 13.8 Plt Count 415 MPV 10.1 Neut # (Auto) 4.8 Lymph # (Auto) 2.2 [place] # (Auto) 0.4 Eos # (Auto) 0.2 Baso # (Auto) 0.0 Absolute Nucleated RBC 0.00 Nucleated RBC % 0.0 Sodium 137 Potassium 4.0 Chloride 106 Carbon Dioxide 25 Anion Gap 6.0 BUN 11 Creatinine 0.5 L Estimated GFR (MDRD) 153 Glucose 105 H Calcium 9.5 Total Bilirubin 0.5 AST 296 H ALT 296 H Alkaline Phosphatase 267 H Total Protein 6.5 Albumin 3.7 Globulin 2.8 Albumin/Globulin Ratio 1.3 Lipase 37 Urine Color YELLOW Urine Clarity CLEAR Urine pH 6.0 Ur Specific [place] 1.020 Urine Protein NEGATIVE Urine Glucose (UA) NEGATIVE Urine Ketones NEGATIVE Urine Occult Blood MODERATE H Urine Nitrite NEGATIVE Urine Bilirubin NEGATIVE Urine Urobilinogen 1 (NORMAL) Ur Leukocyte Esterase LARGE H Urine RBC 11-25 H Urine WBC 11-25 H Ur Squamous Epith Cells FEW Squamous Urine Bacteria None Seen Ur Microscopic Review INDICATED Urine Culture Comments INDICATED - Rads (name of study) RUQ abd US Relevant Findings:: Prelim report reviewed (gallbladder sludge, possible small stones. CBD normal size. no gallbladder wall thickening. ), EMP independent interpretation of test PD Medical Decision Making - ED course Complexity details: considered differential (intermittent upper abd to chest pain the past 2 weeks. Seems possible GB spasms. Has elevated LFTs but BP is normal. Lipase normal. May have been some sludging of bile duct. ), d/w patient, d/w credit consultant (Talked with Dr. Wilkinson to update. He will follow up with pt. ) Departure - Departure Disposition: 01 Home, Self Care Clinical Impression: Abdominal pain Qualifiers: Abdominal location: right upper quadrant Qualified Code(s): R10.11 - Right upper quadrant pain Condition: Stable Record reviewed to determine appropriate education?: Yes Instructions: ED Gallstone W Biliary Colic Follow-Up: Orville Wilkinson MD [Provider Admit Priv/Credential] - Prescriptions: Meloxicam [Mobic] 7.5 mg PO BID 14 Days #28 tablet HYDROcod/ACETAM 5/325 [[place] 5/325] 1 ea PO Q6H PRN #12 tablet PRN Reason: Pain Ondansetron Odt [Zofran] 4 mg TL Q6H PRN #10 tablet PRN Reason: Nausea / Vomiting Comments: Your liver enzymes are mildly elevated. Your blood pressure is good at this point. I did talk with Dr. Wilkinson who did not feel that this was likely preeclampsia. Your ultrasound did show some sludging of the bile and possibly a couple of small stones. I think your episodes of pain and nausea and vomiting are more likely gallbladder spasms. Sludging and thickening of the bile is more common during and can result in the "gallbladder attacks". At this point it does not look inflamed or or infected that would need removal. Encouraged well hydration. You can continue pumping/breast-feeding. We would add some anti-inflammatories and nausea medicine. To that add Tylenol every 4-6 hours if needed for pain. I also wrote for hydrocodone if needed for worse pain at times of the episodes. Dr. Wilkinson's office will call you in the next couple of days to check in and see how you are doing. I sent your prescription to your preferred pharmacy. Return if repeat episodes that are not relieved by medication or briefly resolved. I am prescribing a short course of narcotic pain medication for you. These are potentially dangerous and addictive medications that should be used carefully. These medications may constipate you. Take an mobt-mjt-[id number] stool softener such as docusate twice daily with plenty of water while taking these medications. If you go 24 hours without a bowel movement, take [id number] MiraLAX, per package instructions. Do not drink or drive while taking these medications. If you received narcotic or sedating medications while in the emergency department do not drive for 24 hours. Store this medication in a safe, secure place and out of reach of children. It is a violation of federal law to give or sell this medication to another person or to use in a manner other than prescribed. The ED will not refill narcotic prescriptions, including prescriptions lost or stolen. You can dispose of unwanted medications at the [facility]'s office or at several pharmacies such as [facility]. Forms: PCP List Discharge Date/Time: 08/07/23 11:24
[2023-08-07 09:09] LABS: BILIRUBIN,URINE NEGATIVE (NEGATIVE); GLUCOSE, URINE (UA) NEGATIVE (NEGATIVE); KETONES,URINE (UA) NEGATIVE (NEGATIVE); LEUKOCYTE ESTERASE, URINE LARGE (NEGATIVE); NITRITE,URINE NEGATIVE (NEGATIVE); OCCULT BLOOD,URINE MODERATE (NEGATIVE); PROTEIN,URINE NEGATIVE (NEGATIVE); UROBILINOGEN,URINE 1 (NORMAL) E.U./dL (NORMAL)
[2023-08-07 09:24] LABS: CLARITY,URINE CLEAR (CLEAR)
[2023-08-07 09:25] LABS: BACTERIA,URINE None Seen /HPF (None Seen); SQUAMOUS EPITHELIAL CELL,UR FEW Squamous (<= Few)
[2023-08-07 09:30] LABS: ALBUMIN 3.7 g/dL (3.2-5.5); ALBUMIN/GLOBULIN RATIO 1.3 (1.0-2.2); BILIRUBIN,TOTAL 0.5 mg/dL (0.2-1.0); CALCIUM 9.5 mg/dL (8.5-10.3); CREATININE 0.5 mg/dL (0.6-1.3); TOTAL PROTEIN 6.5 g/dL (6.4-8.9)
[2023-08-07] MEDS: ACETAMINOPHEN 500 MG TABLET PO STA (09:43)
[2023-08-07] MEDS: ONDANSETRON ODT 4 MG TABLET TL STA (09:44)
--- NOTE | 2023-08-07 11:08 | Ultrasound Report ---
PROCEDURE: Abdomen Limited INDICATIONS: RUQ pain intermittently with nausea TECHNIQUE: Real-time focused scanning was performed of the abdomen, with image documentation. COMPARISONS: None. FINDINGS: Liver: The liver demonstrates normal size. The liver demonstrates moderately increased echogenicit y, which limits ultrasound sensitivity for detection of masses. Gallbladder: Layering shadowing gallstones are seen. Sludge is also seen within the gallbladder. The gallbladder wall is minimally thickened at 4 mm. No gallstones or significant sludge can be seen. The gallbladder wall does not appear thickened. There is no specific pericholecystic fluid. The sonograp hic Razo's sign is negative. Biliary ducts: Intrahepatic bile ducts are non-dilated. Extrahepatic bile duct caliber measures 3 m m. Normal is 6-7 mm or less in diameter, or 10 mm or less post-cholecystectomy. Pancreas: Visualized portions of the pancreas are sonographically normal. Right kidney: Normal in size and echotexture. Right kidney measures 11 cm long. No hydronephrosis or nephrolithiasis. No solid masses. No complex renal cystic lesions which require follow-up. IVC: Intrahepatic inferior vena cava is patent. Miscellaneous: No free abdominal fluid. IMPRESSION: Sludge and layering gallstones can be seen within the gallbladder, with minimal gallbladder wall thic kening. An enlarged, fatty liver can be seen. Reviewed by: Costa Bautista MD on 08/07/2023 10:07 AM EVIN Approved by: Costa Bautista MD on 08/07/2023 10:07 AM EVIN Station ID: [id number]
[2023-08-07 11:27] VITALS: BP 121/72; O2SAT 99
== END 2023-08-07 11:24 | disposition home or self-care (01) ==
LOC: ED 08:31
DX: R10.11 Right upper quadrant pain (principal)
CPT/HCPCS: 36415; 76705; 80053; 81001; 83690; 85025; 87086; 99284; A9270; Q0162; 81003

== ENCOUNTER 2023-08-09 09:11 | Outpatient (CLI) | payer BC ==
[2023-08-09 14:43] LABS: HCT - HEMATOCRIT 43.4 % (37.0-47.0); MEAN CORPUSCULAR HEMOGLOBIN 26.9 pg (27.0-31.0); MEAN CORPUSCULAR VOLUME 89.7 fL (81.0-99.0); MEAN PLATELET VOLUME 10.4 fL (7.9-10.8); RED BLOOD COUNT 4.84 10^6/uL (4.20-5.40); RED CELL DISTRIBUTION WIDTH 14.4 % (12.0-15.0); WHITE BLOOD COUNT 8.5 x10^3/uL (4.8-10.8)
[2023-08-09 15:11] LABS: ALBUMIN 3.9 g/dL (3.2-5.5); ALBUMIN/GLOBULIN RATIO 1.3 (1.0-2.2); BILIRUBIN,TOTAL 0.4 mg/dL (0.2-1.0); CALCIUM 9.9 mg/dL (8.5-10.3); CREATININE 0.6 mg/dL (0.6-1.3); POTASSIUM 4.3 mmol/L (3.5-4.5); TOTAL PROTEIN 6.8 g/dL (6.4-8.9)
== END 2023-08-09 09:12 | disposition home or self-care (01) ==
LOC: LAB.S 09:11
PROVIDERS: ATTEND Obstetrics & Gynecology
DX: Z39.1 Encounter for care and examination of lactating mother (principal)
CPT/HCPCS: 36415; 80053; 85027

== ENCOUNTER 2023-08-14 12:55 | Emergency (ER) | payer BC ==
[2023-08-14 13:15] LABS: BASOPHILS % (AUTO) 0.4 %; EOSINOPHILS # (AUTO) 0.3 10^3/uL (0.0-0.7); EOSINOPHILS % (AUTO) 3.5 %; HCT - HEMATOCRIT 43.3 % (37.0-47.0); HGB - HEMOGLOBIN 12.9 g/dL (12.0-16.0); LYMPHOCYTES # (AUTO) 1.7 10^3/uL (1.5-3.5); LYMPHOCYTES % (AUTO) 21.5 %; MEAN CORPUSCULAR HEMOGLOBIN 26.1 pg (27.0-31.0); MEAN CORPUSCULAR HGB CONC 29.8 g/dL (32.0-36.0); MEAN CORPUSCULAR VOLUME 87.5 fL (81.0-99.0); MEAN PLATELET VOLUME 9.6 fL (7.9-10.8); MONOCYTES # (AUTO) 0.4 10^3/uL (0.0-1.0); MONOCYTES % (AUTO) 5.5 %; NEUTROPHILS # (AUTO) 5.6 10^3/uL (1.5-6.6); PLT - PLATELET COUNT 376 10^3/uL (130-450); RED BLOOD COUNT 4.95 10^6/uL (4.20-5.40); WHITE BLOOD COUNT 8.1 x10^3/uL (4.8-10.8)
[2023-08-14 13:24] LABS: BILIRUBIN,URINE NEGATIVE (NEGATIVE); GLUCOSE, URINE (UA) NEGATIVE (NEGATIVE); KETONES,URINE (UA) NEGATIVE (NEGATIVE); LEUKOCYTE ESTERASE, URINE SMALL (NEGATIVE); NITRITE,URINE NEGATIVE (NEGATIVE); OCCULT BLOOD,URINE TRACE-INTA (NEGATIVE); PROTEIN,URINE NEGATIVE (NEGATIVE); UROBILINOGEN,URINE 0.2 (NORMAL) E.U./dL (NORMAL)
[2023-08-14 13:25] LABS: CLARITY,URINE CLEAR (CLEAR)
[2023-08-14 13:26] LABS: HCG UR QUAL NEGATIVE
[2023-08-14 13:28] LABS: ALBUMIN 3.9 g/dL (3.2-5.5); ALBUMIN/GLOBULIN RATIO 1.2 (1.0-2.2); BILIRUBIN,TOTAL 1.4 mg/dL (0.2-1.0); CALCIUM 9.8 mg/dL (8.5-10.3); CREATININE 0.6 mg/dL (0.6-1.3); POTASSIUM 4.5 mmol/L (3.5-4.5); TOTAL PROTEIN 7.1 g/dL (6.4-8.9)
[2023-08-14 13:34] LABS: BACTERIA,URINE Few /HPF (None Seen); MUCUS,URINE Few Strands; RBC,URINE 0-5 /HPF (0-5); SQUAMOUS EPITHELIAL CELL,UR FEW Squamous (<= Few)
--- NOTE | 2023-08-14 14:16 | ED Physician Documentation ---
PD HPI ABD PAIN - Stated complaint Stated Complaint: ABD PX/BACK PX - Chief complaint Chief Complaint: Abd Pain - History obtained from History obtained from: Patient - History of Present Illness Timing - duration: Hours (24) Timing - details: Constant Pain level max: 5 Pain level now: 5 Quality: Cramping, Aching, Pain Location: RUQ, Epigastric Associated symptoms: Nausea. No: Vomiting, Hematemesis, Diarrhea, Constipation, Melena, Hematochezia, Dysuria, Hematuria - Additional information Additional information: Patient is a 22-year-old female who presents to the emergency room with right upper quadrant abdominal pain. This been ongoing for the past several weeks. She gave in the middle of July. She is not breast-feeding. She was seen here a week ago and diagnosed with gallstones. She states the pain has been constant since yesterday. She was told to return if the pain was constant. No fevers. No chills. She states that her liver function tests have been elevated. She has not seen a surgeon but did see her OB, Dr. Wilkinson who reportedly repeated laboratory testing. She states that the pain usually occurs at night and usually after eating, approximately 20 to 30 minutes later. No vomiting. No diarrhea or constipation. No urinary symptoms. Review of Systems Constitutional: denies: Fever, Chills GI: denies: Vomiting, Diarrhea, Hematemesis, Bloody / black stool : denies: Dysuria, Frequency, Hesitancy Skin: denies: Rash Musculoskeletal: denies: Neck pain, Back pain Neurologic: denies: Headache PD PAST MEDICAL HISTORY - Past Medical History Past Medical History: Yes Cardiovascular: None Respiratory: None Endocrine/Autoimmune: HyPERthyroidism - Past Surgical History Past Surgical History: No - Present Medications Home Medications: Ambulatory Orders Medication Instructions Recorded Confirmed HYDROcod/ACETAM 5/325 [[place] 5/325] 1 ea PO Q6H PRN #12 tablet 08/07/23 Meloxicam [Mobic] 7.5 mg PO BID 14 Days #28 tablet 08/07/23 Ondansetron Odt [Zofran] 4 mg TL Q6H PRN #10 tablet 08/07/23 - Allergies Allergies/Adverse Reactions: Allergies Allergy/AdvReac Type Severity Reaction Status Date / Time No Known Drug Allergies Allergy Verified 08/14/23 13:00 - Social History Does the pt smoke?: No Smoking Status: Never smoker Does the pt drink ETOH?: No Does the pt have substance abuse?: No - Immunizations Immunizations are current?: No Immunizations: TDAP current <10years - POLST Patient has POLST: No PD ED PE NORMAL - Vitals Vital signs reviewed: Yes - General General: Alert and oriented X 3, No acute distress - HEENT HEENT: Moist mucous membranes - Neck Neck: Supple, no meningeal sign - Cardiac Cardiac: RRR, Strong equal pulses - Respiratory Respiratory: No respiratory distress, Clear bilaterally - Abdomen Abdomen: Soft, Non distended, Other (Tender palpation right upper quadrant. Equivocal Razo sign) - Back Back: No CVA TTP, No spinal TTP - Derm Derm: Warm and dry, No rash - Extremities Extremities: No edema - Neuro Neuro: Alert and oriented X 3 - Psych Psych: Normal mood, Normal affect Results - Vitals Vitals: Vital Signs - 24 hr 08/14/23 08/14/23 13:00 15:03 Temperature 36.8 C Heart Rate 70 63 Respiratory 16 18 Rate Blood Pressure 135/69 H 124/77 O2 Saturation 97 98 Oxygen O2 Source Room air - Labs Labs: Laboratory Tests 08/14/23 08/14/23 08/14/23 13:11 13:11 13:17 WBC 8.1 RBC 4.95 Hgb 12.9 Hct 43.3 MCV 87.5 MCH 26.1 L MCHC 29.8 L RDW 14.0 Plt Count 376 MPV 9.6 Neut # (Auto) 5.6 Lymph # (Auto) 1.7 [place] # (Auto) 0.4 Eos # (Auto) 0.3 Baso # (Auto) 0.0 Absolute Nucleated RBC 0.00 Nucleated RBC % 0.0 Sodium 137 Potassium 4.5 Chloride 104 Carbon Dioxide 27 Anion Gap 6.0 BUN 9 Creatinine 0.6 Estimated GFR (MDRD) 124 Glucose 97 Calcium 9.8 Total Bilirubin 1.4 H AST 213 H ALT 309 H Alkaline Phosphatase 177 H Total Protein 7.1 Albumin 3.9 Globulin 3.2 Albumin/Globulin Ratio 1.2 Lipase 11 Urine Color YELLOW Urine Clarity CLEAR Urine pH 6.0 Ur Specific [place] 1.010 Urine Protein NEGATIVE Urine Glucose (UA) NEGATIVE Urine Ketones NEGATIVE Urine Occult Blood TRACE-INTA Urine Nitrite NEGATIVE Urine Bilirubin NEGATIVE Urine Urobilinogen 0.2 (NORMAL) Ur Leukocyte Esterase SMALL H Urine RBC 0-5 Urine WBC 6-10 H Ur Squamous Epith Cells FEW Squamous Urine Bacteria Few Urine Mucus Few Strands Ur Microscopic Review INDICATED Urine Culture Comments INDICATED Urine HCG, Qual NEGATIVE - Rads (name of study) Right upper quadrant ultrasound Relevant Findings:: Final report received, See rad report PD Medical Decision Making - ED course Complexity details: reviewed results, re-evaluated patient, considered differential, d/w patient, d/w industrial methods consultant ED course: I reviewed the patient's laboratory findings as well as her imaging with Dr. Tse, general surgery on-call. He reviewed the images and laboratory studies himself. He does not feel that she needs urgent cholecystectomy or urgent ERCP at this time. He recommends an outpatient ERCP and follow-up with GI for that. Patient is well-appearing, nontoxic. Afebrile. No pericholecystic fluid. No evidence of acute cholecystitis at this time. Abdomen is soft, nontender nondistended on serial exam. She is tolerating p.o. without difficulty. She does have elevated LFTs but they are not significantly changed from her prior studies. Will have her follow-up closely with her PCP for referral to GI. Also counseled the patient at length regarding dietary changes and a low-fat diet. Patient counseled regarding pain worsening, vomiting, fevers or other new or worrisome symptoms that would necessitate an emergent reevaluation. Patient with good understanding of and agreement to plan and is comfortable going home at this time This document was made in part using voice recognition software. While efforts are made to proofread this document, sound alike and grammatical errors may occur. Departure - Departure Disposition: 01 Home, Self Care Clinical Impression: Cholelithiasis Qualifiers: Cholelithiasis location: gallbladder Cholecystitis presence: without cholecystitis Biliary obstruction: without biliary obstruction Qualified Code(s): K80.20 - Calculus of gallbladder without cholecystitis without obstruction Condition: Good Instructions: ED Gallstone W Biliary Colic Follow-Up: Orville Wilkinson MD [Provider Admit Priv/Credential] - Within 1 week [facility] [Provider Group] [facility] [place] [Provider Group] Comments: I spoke with Dr. Tse about your case today. He reviewed your imaging and your laboratory studies. He does not feel that you need to be admitted at this time. He does recommend that he follow-up with gastroenterology at [facility] to have an ERCP performed. Please return if you develop fevers, vomiting or severe abdominal pain. Otherwise I would recommend following up closely with GI for further care. Forms: PCP List Discharge Date/Time: 08/14/23 15:31
[2023-08-14 15:28] VITALS: BP 124/77; O2SAT 98
--- NOTE | 2023-08-14 15:43 | Ultrasound Report ---
PROCEDURE: Abdomen Limited INDICATIONS: RUQ abd pain TECHNIQUE: Ultrasound of the abdominal right upper quadrant was obtained with image documentation. COMPARISONS: None. FINDINGS: Liver: Liver shows diffusely increased echogenicity without focal mass lesion. No intrahepatic duct al dilation. Gallbladder: Cholelithiasis with minimal gallbladder wall thickening at 4 mm. No pericholecystic flu id or sonographic Razo's sign. Common Bile Duct: 8 mm. IMPRESSION: Cholelithiasis and minimal gallbladder wall thickening without pericholecystic fluid or Razo's sign Hepatic fatty infiltration Reviewed by: Ilia Stephen MD on 08/14/2023 2:42 PM AKDT Approved by: Ilia Stephen MD on 08/14/2023 2:42 PM AKDT Station ID: [id number]
--- NOTE | 2023-08-14 15:46 | CONSULTATION NOTE ---
Referring Provider Consult Date: 08/14/23 Chief Complaint - Chief Complaint Chief Complaint: abdominal pain History of Present Illness - History Obtained From Records Reviewed: yes History obtained from: ED MD Exam Limitations: pt not examined - History of Present Illness HPI Comment/Other: waxing and waning abdominal pain for over a week. persistently elevated lfts and US sludge and small stones in gallbladder. no inflammation gallbladder History - Past Medical History Cardiovascular: reports: None Respiratory: reports: None Endocrine/Autoimmune: reports: HyPERthyroidism MRSA Hx?: No - POLST Patient has POLST: No Meds/Allgy - Home Medications Home Medications: Ambulatory Orders Medication Instructions Recorded Confirmed HYDROcod/ACETAM 5/325 [Hermon 5/325] 1 ea PO Q6H PRN #12 tablet 08/07/23 Meloxicam [Mobic] 7.5 mg PO BID 14 Days #28 tablet 08/07/23 Ondansetron Odt [Zofran] 4 mg TL Q6H PRN #10 tablet 08/07/23 - Allergies Allergies/Adverse Reactions: Allergies Allergy/AdvReac Type Severity Reaction Status Date / Time No Known Drug Allergies Allergy Verified 08/14/23 13:00 Exam - Vital Signs Vital Signs: Vital Signs x48h Temp Pulse Resp BP Pulse Ox 08/14/23 15:03 63 18 124/77 98 08/14/23 13:00 36.8 C 70 16 135/69 H 97 - Physical Exam Comments/Other: not examined Conclusion/Plan - Problem List (1) Abdominal pain Conclusion/Plan: persistently elevated lfts consistent with cbd stones. most often the cbd cannot be cleared of stones at the time of lap donita especially without lap cbd equipment/ capability which we do not have at [facility]. she does not have cholecystitis recommend outpt gi referral for ERCP evaluation and elective lap donita to follow. if her symptoms progress prior to outpt gi referral recommend she go to a hospital that offers ercp. - Lab Results Fish Bones: 08/14/23 13:11 08/14/23 13:11
== END 2023-08-14 15:31 | disposition home or self-care (01) ==
LOC: ED 12:55
DX: K80.20 Calculus of gallbladder without cholecystitis without obstruction (principal)
CPT/HCPCS: 36415; 80053; 81001; 81003; 81025; 83690; 85025; 87086; 99284

== ENCOUNTER 2023-08-26 15:08 | Outpatient (CLI) | payer BC ==
[2023-08-26 15:23] LABS: BASOPHILS # (AUTO) 0.1 10^3/uL (0.0-0.1); BASOPHILS % (AUTO) 0.7 %; EOSINOPHILS # (AUTO) 0.5 10^3/uL (0.0-0.7); EOSINOPHILS % (AUTO) 4.5 %; HCT - HEMATOCRIT 40.4 % (37.0-47.0); HGB - HEMOGLOBIN 12.9 g/dL (12.0-16.0); LYMPHOCYTES # (AUTO) 3.6 10^3/uL (1.5-3.5); LYMPHOCYTES % (AUTO) 35.8 %; MEAN CORPUSCULAR HEMOGLOBIN 27.6 pg (27.0-31.0); MEAN CORPUSCULAR HGB CONC 31.9 g/dL (32.0-36.0); MEAN CORPUSCULAR VOLUME 86.3 fL (81.0-99.0); MEAN PLATELET VOLUME 10.2 fL (7.9-10.8); MONOCYTES # (AUTO) 0.6 10^3/uL (0.0-1.0); MONOCYTES % (AUTO) 5.9 %; NEUTROPHILS # (AUTO) 5.3 10^3/uL (1.5-6.6); NEUTROPHILS % (AUTO) 52.9 %; PLT - PLATELET COUNT 307 10^3/uL (130-450); RED BLOOD COUNT 4.68 10^6/uL (4.20-5.40); RED CELL DISTRIBUTION WIDTH 14.2 % (12.0-15.0)
[2023-08-26 15:40] LABS: ALBUMIN 4.3 g/dL (3.2-5.5); ALBUMIN/GLOBULIN RATIO 1.5 (1.0-2.2); BILIRUBIN,TOTAL 0.6 mg/dL (0.2-1.0); CREATININE 0.6 mg/dL (0.6-1.3); POTASSIUM 4.2 mmol/L (3.5-4.5); TOTAL PROTEIN 7.1 g/dL (6.4-8.9)
== END 2023-08-26 15:09 | disposition home or self-care (01) ==
LOC: LAB 15:08
PROVIDERS: ATTEND Internal Medicine
DX: K80.50 Calculus of bile duct without cholangitis or cholecystitis without obstruction (principal); R79.89 Other specified abnormal findings of blood chemistry
CPT/HCPCS: 36415; 80053; 85025

== ENCOUNTER 2023-10-11 13:23 | Outpatient (CLI) | payer BC | END 2023-10-11 13:24 | disposition home or self-care (01) | LOC: LAB 13:23 | PROVIDERS: ATTEND Obstetrics & Gynecology | DX: Z32.01 Encounter for pregnancy test, result positive (principal) | CPT/HCPCS: 36415; 84702 ==

== ENCOUNTER 2023-10-17 20:55 | Outpatient (CLI) | payer BC ==
--- NOTE | 2023-10-18 20:29 | Ultrasound Report ---
PROCEDURE: OB 1st Trimester w/TV INDICATIONS: POSITIVE TEST OUTSIDE/PRIOR DATING DATA: Last menstrual period (LMP): Unsure. LMP-based estimated date of delivery (LAKEISHA): Unknown. First dating scan (date and location): Not available. Estimated date of delivery (LAKEISHA) from first dating scan: 06/07/2024. TECHNIQUE: Real-time scanning was performed of the fetus and maternal pelvic organs, with image documentation. Endovaginal scanning was also performed to better visualize the fetus and maternal ovaries. COMPARISON: None. FINDINGS: Intrauterine gestational sac present. A small yolk sac is also seen. Embryo: [place]-rump length measures 0.73 cm. Estimated gestational age is 6 weeks, 4 days. Heart rate: 135 bpm. Other: Small subchorionic hematoma measures 1.8 x 1.2 x 2.4 cm in size is seen.. Measurement variability in dating: +/- 4 weeks by LMP, +/- 7 days by mean sac diameter (use before 6 weeks gestation if crown-rump length not able to be measured), +/- 5 days by crown-rump length (6-12 weeks gestation). Maternal organs: Ovaries appear within normal limits. IMPRESSION: 1. Single live intrauterine gestation with pole and yolk sac seen. heart rate is 135 bpm. Estimated gestational age based on current study is 6 weeks, 4 days. 2. Small subchorionic hematoma as above. 3. No gross abnormality is seen in bilateral ovaries. Reviewed by: Jr Tineo MD on 10/18/2023 8:28 PM PDT Approved by: Jr Tineo MD on 10/18/2023 8:28 PM PDT Station ID: [id number]
== END 2023-10-17 20:56 | disposition home or self-care (01) ==
LOC: DI 20:55
PROVIDERS: ATTEND Obstetrics & Gynecology
DX: O46.8X1 Other antepartum hemorrhage, first trimester (principal); Z3A.01 Less than 8 weeks gestation of pregnancy

== ENCOUNTER 2023-11-15 12:42 | Outpatient (CLI) | payer BC | END 2023-11-15 12:43 | disposition home or self-care (01) | LOC: LAB 12:42 | PROVIDERS: ATTEND Obstetrics & Gynecology | DX: Z32.01 Encounter for pregnancy test, result positive (principal) | CPT/HCPCS: 36415; 84702 ==